=== PATIENT | male | born 1955 | race Caucasian/White ===

== ENCOUNTER → 2017-12-21 | Outpatient (CLI) | payer OTHER ==
--- NOTE | 2017-12-21 11:29 | DIAGNOSTIC IMAGING REPORT ---
ULTRASOUND OF THE CAROTID ARTERIES CLINICAL HISTORY: QUADRANTANOPIA OF LEFT EYE COMPARISON STUDY: None. TECHNIQUE: Real-time, grayscale, and color Doppler sonography of the carotid arteries was performed. Imaging reviewed in the transverse and longitudinal planes. NASCET criteria was utilized for stenosis calcification. FINDINGS: There is minimal atherosclerotic plaque present . The peak systolic velocity within the right internal carotid artery is 90 cm/sec. The systolic velocity ratio of right internal to common carotid artery is 1.3. The peak systolic velocity within the left internal carotid artery is 79 cm/sec. The systolic velocity ratio left internal to common carotid artery is 1.3. There is retrograde flow within the right vertebral artery.. The external carotid arteries are patent. Blood pressure in the right arm measured 142 mm/Hg. Blood pressure in the left arm measured 152 mm/Hg. IMPRESSION: 1. No evidence of hemodynamically significant carotid stenosis 2. Retrograde flow within the right vertebral artery. Electronically signed by: Tirso Last M.D. 12/21/2017 11:28 AM Dictated Date/Time: 12/21/2017 11:24 AM
== END | disposition home or self-care (01) ==
LOC: C.ULTR 10:35
PROVIDERS: ATTEND Internal Medicine
DX: H53.462 Homonymous bilateral field defects, left side (principal); H53.461 Homonymous bilateral field defects, right side

== ENCOUNTER 2019-10-27 04:29 | Inpatient (IN) ==
--- OUTSIDE RECORDS SUMMARY | 2019-10-27 04:32 | External Medical Summary | Continuity of Care Document ---
:1955 Author Name Ami MPoli, Provider Address Unavailable Unavailable , Care Team Providers Name Role Phone Unavailable Unavailable Unavailable Problems Hyperlipidemia (272.4) (E78.5) Prediabetes (790.29) (R73.03) Visual disturbances (368.9) (H53.9) Allergies and Adverse Reactions No Known Drug Allergies (Allergy) Medications No Reported Medications , M.D. Refills: 0 Procedures Procedures not documented Immunizations Immunizations not documented Family History Unknown Family Member Family history of malignant melanoma (V16.8) Status: Active Comments: Family History (Z80.8) Mother Family history of malignant neoplasm (V16.9) (Z80.9) Status: Active Family history of Status: Active Father Family history of malignant neoplasm (V16.9) (Z80.9) Status: Active Family history of Status: Active Social History - Smoking Status Never smoker Plan of Treatment Planned Observations Planned Goals not documented Results No Known Results Results not documented Encounters Appointment; Kinsey Bojorquez DO 19-Jan-2018 13:00 Encounter Diagnosis: Problem not documented
--- OUTSIDE RECORDS SUMMARY | 2019-10-27 04:32 | External Medical Summary | Continuity of Care Document ---
:1955 Author Name Ami Dan, Provider Address Unavailable Unavailable , Care Team Providers Name Role Phone Unavailable Unavailable Unavailable Problems Visual disturbances (368.9) (H53.9) Prediabetes (790.29) (R73.03) Hyperlipidemia (272.4) (E78.5) Allergies and Adverse Reactions No Known Drug [...]
[2019-10-27] MEDS ORDERED: ASPIRIN CHEW 324 MG PO STA (04:46)
[2019-10-27] MEDS ORDERED: NITROGLYCERIN SL 0.4 MG/TAB TAB SL PRN ×2 (04:46→07:03)
[2019-10-27 04:54] LABS: Basophils # (auto) 0.01 K/uL (0-0.2); Basophils % (auto) 0.2 %; Eosinophils # (auto) 0.09 K/uL (0-0.5); Eosinophils % (auto) 1.4 %; Hematocrit (blood only) 45.6 % (42-52); Hemoglobin 15.4 g/dL (14.0-18.0); Immature Granulocytes # (auto) 0.01 K/uL (0.00-0.02); Immature Granulocytes % (auto) 0.2 %; Lymphocytes # (auto) 2.49 K/uL (1.2-3.4); Mean Corpuscular Hemoglobin 28.3 pg (25-34); Mean Corpuscular Hgb Conc 33.8 g/dL (32-36); Mean Corpuscular Volume 83.7 fL (80-100); Mean Platelet Volume 9.1 fL (7.4-10.4); Monocytes # (auto) 0.46 K/uL (0.11-0.59); Neutrophils % (auto) 53.2 %; Platelet Count 158 K/uL (130-400); RDW Coefficient of Variation 13.5 % (11.5-14.5); RDW Standard Deviation 40.7 fL (36.4-46.3); Red Blood Count 5.45 M/uL (4.7-6.1); White Blood Count 6.56 K/uL (4.8-10.8)
[2019-10-27] MEDS ORDERED: NITROGLYCERIN 2% OINTMENT 30GM TUBE EXT ONE (04:58)
--- NOTE | 2019-10-27 05:09 | Emergency Department Note ---
History of Present Illness General Chief complaint: Chest Pain Stated complaint: DEEP CHEST PAINS, SWEATING, ODD FEELING IN LEG/ARM History of Present Illness Maximum Pain Intensity: 5 This 64-year-old presents to the ER complaining of chest pressure with diaphoresis since 1:30 AM Location: Mid chest Quality: Pressure Severity: Moderate Duration: This morning Timing: Started at 1:30 AM Context: Patient was concerned and came in Modifying factors: better with nothing; worse with activity Patient also complains of some tingling in his right fingers. Patient denies dyspnea, radiating pain, abdominal pain, leg pain or swelling. No prior heart disease. He does not smoke. He states he has no active medical problems. He states his father had heart problems in his older age but is unsure what. 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 Beliefs That Will Affect Care: None marital status: Current Living Situation: Spouse Other Information That Helps Us Care for You: No Feels Safe at Home: Yes Safety Concerns: Feels Safe At This Time Smoking Status: Never smoker Do You Dip or Chew Tobacco: No ; Second Hand Exposure: No ; Tobacco Cessation Education Requested by Patient: No Hx Alcohol Use: No Hx Substance Use: No Review of Systems A total of 10 systems reviewed and were otherwise negative Physical Exam Vital Signs Vital Signs - 24 hr 10/27/19 04:52 10/27/19 04:56 10/27/19 04:57 Pulse Rate 57 L Pulse Rate [Apical] 52 L 68 Pulse Rate from SpO2 Sensor 58 L Pulse Rhythm [Apical] Regular Regular Respiratory Rate 16 21 16 Respiratory Effort / Characteristics Non-Labored Non-Labored Accessory Muscle Use Respiratory Depth Normal Normal Respiratory Pattern Regular Regular Blood Pressure 116/86 Blood Pressure [Right Arm] 148/89 H 116/86 Blood Pressure Mean 94 Blood Pressure Mean [Right Arm] 108 96 Pulse Oximetry 100 99 96 Oxygen Delivery Method Room Air Room Air 10/27/19 05:00 10/27/19 05:06 10/27/19 05:30 Pulse Rate 56 L 57 L Pulse Rate [Apical] 52 L Pulse Rate from SpO2 Sensor 55 L 49 L Pulse Rhythm [Apical] Regular Respiratory Rate 18 16 16 Respiratory Effort / Characteristics Non-Labored Spontaneous Respiratory Depth Normal Respiratory Pattern Blood Pressure 123/84 127/76 Blood Pressure [Right Arm] 123/84 Blood Pressure Mean 89 91 Blood Pressure Mean [Right Arm] 97 Pulse Oximetry 96 97 98 Oxygen Delivery Method Room Air 10/27/19 06:00 Pulse Rate 50 L Pulse Rate [Apical] Pulse Rate from SpO2 Sensor 51 L Pulse Rhythm [Apical] Respiratory Rate 17 Respiratory Effort / Characteristics Respiratory Depth Respiratory Pattern Blood Pressure 119/91 Blood Pressure [Right Arm] Blood Pressure Mean 99 Blood Pressure Mean [Right Arm] Pulse Oximetry 99 Oxygen Delivery Method VITALS: Vitals are noted on the nurse's note and reviewed by myself. Vital signs stable. GENERAL: White male anxious appearing, in no acute distress, nondiaphoretic, well-developed well-nourished. SKIN: Capillary reflex less than 2 seconds. HEENT: Normocephalic. PERRLA. EOMI. Nares patent. Mucous membranes moist. Neck is supple without nuchal rigidity. HEART: Regular rate and rhythm without murmurs gallops or rubs. LUNGS: Clear to auscultation bilaterally without wheezes, rales or rhonchi. No retractions or accessory muscle use. ABDOMEN: Positive bowel sounds x 4. Normal tympanic percussion. Soft, nontender, without masses or organomegaly. Bartholomew sign negative. No guarding or rebound tenderness. MUSCULOSKELETAL: No gross musculoskeletal defects. NEURO: Patient was alert and oriented to person place and time. Cranial nerves II through XII grossly intact. No pronator drift. Celebra exam intact. no focal neurological deficits. Course Administered Medications Acetaminophen (Tylenol) 650 mg PO Q4H PRN PRN Reason: Pain or Fever Stop: 11/26/19 07:02 Last Admin: 10/27/19 18:03 Dose: 650 mg Documented by: [id number] Gelatin (Surgifoam Sponge 100 (Large)) 1 ea EXT ONCE PRN PRN Reason: Hemostasis Stop: 11/26/19 14:54 Last Admin: 10/27/19 15:04 Dose: 1 ea Documented by: [id number] Heparin Sodium/Dextrose (Heparin Sodium/Dextrose) 25,000 units in 500 mls @ 30 mls/hr IV .[id number] [facility]; Protocol Stop: 11/26/19 05:44 Last Admin: 10/27/19 22:40 Dose: Not Given Documented by: [id number] Admin: 10/27/19 05:52 Dose: 1,500 units/hr, 30 mls/hr Documented by: [id number] Cosigned by: [id number] Nitroglycerin (Nitro-Bid 2%) 0.5 inch EXT Q6 [facility] Stop: 11/26/19 11:59 Last Admin: 10/28/19 00:07 Dose: 0.5 inch Documented by: [id number] Admin: 10/27/19 17:32 Dose: 0.5 inch Documented by: [id number] Admin: 10/27/19 16:07 Dose: Not Given Documented by: [id number] Oxycodone/Acetaminophen (Percocet 5mg/325mg) 1 tab PO Q4H PRN PRN Reason: Pain Stop: 11/10/19 15:58 Last Admin: 10/27/19 21:26 Dose: 1 tab Documented by: [id number] Discontinued Medications Aspirin (Aspirin) 324 mg PO NOW STA Stop: 10/27/19 04:47 Last Admin: 10/27/19 04:51 Dose: 324 mg Documented by: [id number] Atropine Sulfate (Atropine Sulfate) Confirm Administered Dose 1 mg IV .STK-MED ONE Stop: 10/27/19 10:47 Last Admin: 10/27/19 16:06 Dose: Not Given Documented by: [id number] Bupivacaine HCl (Marcaine 0.5% Mpf) 0 ml INFIL ONCE [facility] Stop: 10/27/19 15:16 Last Admin: 10/27/19 15:06 Dose: 8 ml Documented by: [id number] Clopidogrel Bisulfate (Plavix) 600 mg PO NOW STA Stop: 10/27/19 14:10 Last Admin: 10/27/19 15:55 Dose: 600 mg Documented by: [id number] Fentanyl Citrate (Fentanyl Citrate) Confirm Administered Dose 100 mcg .ROUTE .STK-MED ONE Stop: 10/27/19 10:24 Last Admin: 02/06/20 16:06 Dose: Not Given Documented by: [id number] Fentanyl Citrate (Fentanyl Citrate) Confirm Administered Dose 100 mcg .ROUTE .[facility]-MED ONE Stop: 10/27/19 12:42 Last Admin: 10/27/19 16:08 Dose: Not Given Documented by: [id number] Heparin Sodium (Porcine) (Heparin Sodium (Porcine)) Confirm Administered Dose 10,000 units .ROUTE .[facility] ONE Stop: 10/27/19 05:50 Last Admin: 10/27/19 05:51 Dose: 7,000 units Documented by: [id number] Cosigned by: [id number] Heparin Sodium (Porcine) (Heparin Iv Bolus (Contact Acid Plant Operator Use Only)) Confirm Administered Dose 10,000 units .ROUTE .[facility] ONE Stop: 10/27/19 10:24 Last Admin: 10/27/19 15:01 Dose: 10,000 units Documented by: [id number] Heparin Sodium (Porcine) (Heparin Iv Bolus (Contact Acid Plant Operator Use Only)) Confirm Administered Dose 10,000 units .ROUTE .[facility] ONE Stop: 10/27/19 11:48 Last Admin: 10/27/19 16:06 Dose: Not Given Documented by: [id number] Heparin Sodium/Dextrose () 1 ea IV NOW STA; Protocol Stop: 10/27/19 05:42 Last Admin: 10/27/19 05:58 Dose: 1 ea Documented by: [id number] Heparin Sodium/Sodium Chloride (Heparin/Nss 1000 Unit/500ml Flush Bag) Confirm Administered Dose 3,000 units IV .[facility] ONE Stop: 10/27/19 10:24 Last Admin: 10/27/19 16:06 Dose: Not Given Documented by: [id number] Acetaminophen (Ofirmev) 1,000 mg in 100 mls @ 400 mls/hr IV NOW STA Stop: 10/27/19 05:44 Last Infusion: 10/27/19 05:57 Dose: 0 mls/hr Documented by: [id number] Admin: 10/27/19 05:34 Dose: 400 mls/hr Documented by: [id number] Sodium Chloride (Nss 1000ml) 1,000 mls @ 1 mls/hr IV .Q24H HUGO Stop: 10/27/19 14:07 Last Admin: 10/27/19 16:09 Dose: Not Given Documented by: [id number] Sodium Chloride (Nss 1000ml) 1,000 mls @ 100 mls/hr IV .Q10H HUGO Stop: 10/27/19 21:44 Last Admin: 10/27/19 16:08 Dose: Not Given Documented by: [id number] Cefazolin Sodium (Ancef 1000mg) 1,000 mg in 7.5 mls @ 2.5 mls/min IV ONCE ONE Stop: 10/27/19 14:59 Last Admin: 10/27/19 14:30 Dose: 2.5 mls/min Documented by: [id number] Lidocaine HCl (Buffered Lidocaine 1%) 20 ml INFIL ONCE ONE Stop: 10/27/19 14:55 Last Admin: 10/27/19 15:03 Dose: 8 ml Documented by: [id number] Midazolam HCl (Versed) Confirm Administered Dose 2 mg .ROUTE .STK-MED ONE Stop: 10/27/19 10:24 Last Admin: 10/27/19 16:06 Dose: Not Given Documented by: [id number] Midazolam HCl (Versed) Confirm Administered Dose 2 mg .ROUTE .STK-MED ONE Stop: 10/27/19 11:22 Last Admin: 10/27/19 16:06 Dose: Not Given Documented by: [id number] Midazolam HCl (Versed) Confirm Administered Dose 2 mg .ROUTE .STK-MED ONE Stop: 10/27/19 12:15 Last Admin: 10/27/19 16:07 Dose: Not Given Documented by: [id number] Midazolam HCl (Versed) Confirm Administered Dose 2 mg .ROUTE .STK-MED ONE Stop: 10/27/19 12:42 Last Admin: 10/27/19 16:08 Dose: Not Given Documented by: [id number] Morphine Sulfate (Morphine Sulfate) 4 mg IV NOW STA Stop: 10/27/19 05:59 Last Admin: 10/27/19 06:02 Dose: 4 mg Documented by: [id number] Nicardipine HCl (Cardene) Confirm Administered Dose 25 mg .ROUTE .STK-MED ONE Stop: 10/27/19 10:24 Last Admin: 10/27/19 16:06 Dose: Not Given Documented by: [id number] Nitroglycerin (Nitrostat) 0.4 mg SL UD PRN PRN Reason: Chest Pain Stop: 11/26/19 04:45 Last Admin: 10/27/19 04:51 Dose: 0.4 mg Documented by: [id number] Nitroglycerin (Nitro-Bid 2%) 0.5 inch EXT NOW ONE Stop: 10/27/19 04:59 Last Admin: 10/27/19 05:05 Dose: 0.5 inch Documented by: [id number] Nitroglycerin/Dextrose (Nitroglycerin/D5w 100 Mcg/Ml 20ml Syringe) Confirm Administered Dose 2,000 mcg .ROUTE .STK-MED ONE Stop: 10/27/19 10:25 Last Admin: 10/27/19 16:06 Dose: Not Given Documented by: [id number] Norepinephrine Bitartrate (Levophed (Contact Acid Plant Operator Use Only)) Confirm Administered Dose 8 mg .ROUTE .STK-MED ONE Stop: 10/27/19 12:27 Last Admin: 10/27/19 16:08 Dose: Not Given Documented by: [id number] Ondansetron HCl (Zofran) 4 mg IV NOW STA Stop: 10/27/19 05:59 Last Admin: 10/27/19 06:02 Dose: 4 mg Documented by: [id number] Thrombin (Recothrom Kit) 0 units TOP ONCE HUGO Stop: 10/27/19 18:00 Last Admin: 10/27/19 14:40 Dose: 8 units Documented by: [id number] Medical Decision Making Medical Records Attestation: I reviewed the patient's medical records. Home Medications Current Medication List: was personally reviewed by me Laboratory Data Attestation: I reviewed the patient's lab results. Result diagrams: 10/27/19 04:40 10/27/19 04:40 Lab Results 10/27/19 10/27/19 10/27/19 Range/Units 04:40 04:40 04:40 WBC 6.56 (4.8-10.8) K/uL RBC 5.45 (4.7-6.1) M/uL Hgb 15.4 (14.0-18.0) g/dL Hct 45.6 (42-52) % MCV 83.7 (80-100) fL MCH 28.3 (25-34) pg MCHC 33.8 (32-36) g/dL RDW Std Deviation 40.7 (36.4-46.3) fL RDW Coeff of Leroy 13.5 (11.5-14.5) % Plt Count 158 (130-400) K/uL MPV 9.1 (7.4-10.4) fL Immature Gran % (Auto) 0.2 % Neut % (Auto) 53.2 % Lymph % (Auto) 38.0 % [place] % (Auto) 7.0 % Eos % (Auto) 1.4 % Baso % (Auto) 0.2 % Immature Gran # (Auto) 0.01 (0.00-0.02) K/uL Neut # (Auto) 3.50 (1.4-6.5) K/uL Lymph # (Auto) 2.49 (1.2-3.4) K/uL [place] # (Auto) 0.46 (0.11-0.59) K/uL Eos # (Auto) 0.09 (0-0.5) K/uL Baso # (Auto) 0.01 (0-0.2) K/uL PT 9.8 (9.0-12.0) Seconds INR 1.0 (0.9-1.1) APTT 21.8 (21.0-31.0) Seconds PTT Ratio 0.8 Sodium 140 (136-145) mmol/L Potassium 4.0 (3.5-5.1) mmol/L Chloride 108 H (98-107) mmol/L Carbon Dioxide 27 (21-32) mmol/L Anion Gap 5.0 (3-11) BUN 17 (7-18) mg/dl Creatinine 1.24 (0.6-1.4) mg/dl Est Cr Clr Drug Dosing 67.1 ml/min Est GFR ( Amer) 70.3 Est GFR (Non-Af Amer) 60.6 BUN/Creatinine Ratio 13.7 (10-20) Glucose 135 H (70-99) mg/dl Calcium 8.8 (8.5-10.1) mg/dl Total Bilirubin 0.6 (0.2-1) mg/dl AST 17 (15-37) U/L ALT 33 (12-78) U/L Alkaline Phosphatase 69 (45-117) U/L Troponin I 0.200 H* (0-0.045) ng/ml Total Protein 6.8 (6.4-8.2) gm/dl Albumin 3.6 (3.4-5.0) gm/dl Globulin 3.2 (2.5-4.0) gm/dl Albumin/Globulin Ratio 1.1 (0.9-2) Lipase 308 (73-393) U/L Imaging Data Attestation: I personally reviewed and interpreted this imaging study as follows: Blood Pressure Blood Pressure Findings: Normal blood pressure MDM Narrative Prior records/ancillary studies reviewed. Triage Nursing notes reviewed. The patient's history was concerning for chest pain. Differential diagnosis: Etiologies such as cardiac ischemia, aortic dissection, pulmonary embolism, pneumonia, pneumothorax, musculoskeletal, infections, pericarditis, myocarditis, esophageal rupture, gastrointestinal, as well as others were entertained. Physical examination: As above. ER treatment provided: An order was placed for continuous cardiac monitoring. The monitor shows a rate of 45 -90 with a NS rhythm. Nitroglycerin, aspirin, Nitropaste, heparin On reassessment the patient felt better. Diagnostic interpretation by me: The electrocardiogram was normal sinus, ST depression in lead I, V5 and V6, T wave inversion aVL, rate of 57, no old EKG. Impression abnormal EKG with co ncerns for ischemia interpreted by myself EKG ordered for chest pain. Serial EKGs showed no ST elevation. I think arrhythmia is unlikely. EKG shows normal sinus rhythm with no interval abnormalities such as QT prolongation or WPW. There are no findings to suggest Brugada syndrome. Cardiac monitoring in the emergency department reveals no tachycardic or bradycardic dysrhythmia. Hypertrophic cardiomyopathy was considered but there are no clear historical elements pointing toward this. EKG is not suggestive. The QRS voltage is not extremely large and there are no suggestive Q waves. The labs revealed elevated troponin. Stable H&H Imaging studies: Chest x-ray with no acute consolidation, pneumothorax or free air per my interpretation HEART SCORE: Hx: high/mod/low suspicion: 2 ECG: ST depression/nonspecific changes/normal: 2 Age: Greater than 65/45-64/less than 45: 2 Risk factors: (Hypertension, hyperlipidemia, diabetes, coronary disease, tobacco use, cocaine use): 0 Troponin: Greater than 2 times normal limits/1-2 times normal limits/normal: 2 Total: 8 Consultation: A consultation was placed with the hospitalist, Dr Christianson. The case was discussed and diagnostics were reviewed. The patient was evaluated in the ER for further treatment. Exam and history seem consistent with NSTEMI with concerns for cardiac in etiology. Patient felt better after the nitroglycerin. Second EKG was improved. Patient was counseled on the heparin and was heparinized. He states he has no risk factors for recent GI bleeding. Patient is agreeable treatment plan of admission. Medicine was consulted. Patient was pain-free after the nitroglycerin. Nitropaste was placed. Patient was reassessed multiple times. He had serial EKGs. There was no STEMI on the serial EKGs. They were slightly improved after the nitroglycerin. By the evaluation outlined above emergent etiologies such as aortic dissection, pulmonary embolism, pneumonia, pneumothorax, infections, pericarditis, myocarditis, gastrointestinal, as well as others were deemed relatively unlikely. The pt informed about the findings as listed above. All questions were answered and pleased with the treatment. The chart was completed utilizing [employer]ista Speech voice recognition software. Grammatical errors, random word insertions, pronoun errors, and incomplete sentences are an occassional consequence of this system due to software limitations, ambient noise, and hardware issues. Any formal questions or concerns about the content, text, or information contained within the body of this dictation should be directly addressed to the physician preschool assistant for clarification. Impression & Plan Acute non-ST elevation myocardial infarction (NSTEMI) Critical Care Time Critical Care Time: Yes Total Critical Care Time: 35 Discharge Plan Visit Data *Final* Discharge Date/Time: 10/27/19 06:46 Chief Complaint: Chest Pain Stated Complaint: DEEP CHEST PAINS, SWEATING, ODD FEELING IN LEG/ARM ED Provider: Homer [facility] ED Midlevel Provider: Ale Lyons Discharge Problem: Acute non-ST elevation myocardial infarction (NSTEMI) Patient Disposition: Admitted As Inpatient Condition: Fair Discharge Instructions Interventions: ED Discharge Assessment Last Done: 10/27/19 06:46
[2019-10-27 05:15] LABS: Partial Thromboplastin Ratio 0.8; Partial Thromboplastin Time 21.8 Seconds (21.0-31.0); Prothrombin Time 9.8 Seconds (9.0-12.0)
[2019-10-27 05:17] LABS: Albumin Level 3.6 gm/dl (3.4-5.0); BUN Creatinine Ratio 13.7 (10-20); Calcium 8.8 mg/dl (8.5-10.1); Creatinine Clr Calc Pharmacy 67.1 ml/min; Est GFR (African American) 70.3; Est GFR (Non-African American) 60.6
--- NOTE | 2019-10-27 05:21 | Emergency Department Note ---
ED Visit Note I have seen and examined this patient with Ale Pena and generally agree with the treatment plan as discussed. Patient is a 64-year-old male with chest pain relieved by nitro. His EKG here is abnormal however does not meet STEMI criteria. Will discuss with hospitalist. .
[2019-10-27 05:26] LABS: Albumin Globulin Ratio 1.1 (0.9-2); Bilirubin,Total 0.6 mg/dl (0.2-1); Globulin 3.2 gm/dl (2.5-4.0); Total Protein 6.8 gm/dl (6.4-8.2); Troponin I 0.2 ng/ml (0-0.045)
[2019-10-27] MEDS ORDERED: ACETAMINOPHEN 1,000 MG/100 ML VIAL IV STA (05:30)
[2019-10-27] MEDS ORDERED: HEPARIN SOD 5,000 UNIT/0.5 ML VIAL ONE (05:49)
[2019-10-27] MEDS: HEPARIN SODIUM/DEXTROSE 25,000 UNITS/500 ML BAG IV SCH ×2 (05:52→22:40)
[2019-10-27] MEDS ORDERED: ONDANSETRON INJ 2 MG/ML 2 ML VIAL IV STA (05:58)
[2019-10-27] MEDS ORDERED: MoRPHine SULFATE 4 MG/ML 1 ML CARP\\VIAL IV STA (05:58)
[2019-10-27] MEDS ORDERED: ONDANSETRON INJ 2 MG/ML 2 ML VIAL IV PRN (07:03)
--- NOTE | 2019-10-27 07:04 | XRay Report ---
SINGLE VIEW CHEST CLINICAL HISTORY: Atypical chest pain. FINDINGS: An AP, portable, upright chest radiograph is obtained. No prior studies are available for c omparison at the time of dictation. The examination is mildly degraded by portable technique and ilan ent rotation. The heart is top normal for projection. The mediastinal contour is within normal limit s. The lungs and pleural spaces are clear. No pneumothorax is seen. The bony thorax is grossly intact . IMPRESSION: No active disease in the chest. ACT 112: Negative or not required by law. Electronically signed by: Darrel Chiu M.D. 10/27/2019 7:03 AM
[2019-10-27] MEDS ORDERED: PNEUMOCOCCAL POLYSACCHARIDES 25 MCG/0.5 ML VIAL/SYR IM ONE (07:14)
[2019-10-27] MEDS ORDERED: INFLUENZA ADMINISTRATION CHARGE ONE (07:14)
[2019-10-27] MEDS ORDERED: INFLUENZA VACCINE HIGH DOSE 65+ 0.5 ML SYR IM ONE (07:14)
[2019-10-27] MEDS ORDERED: PNEUMOCOCCAL ADMINISTRATION CHARGE ONE (07:14)
--- NOTE | 2019-10-27 08:23 | History and Physical Report ---
DATE OF ADMISSION: 10/27/2019 CHIEF COMPLAINT: Chest pain. HISTORY OF PRESENT ILLNESS: This 64-year-old male with past medical history significant for hyperlipidemia, prediabetes. 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 He is not on any medications. Lives at home with his , presents with chest pain. The patient woke up around 1:30 a.m. with chest discomfort and some pressure like feeling . He thought it was heartburn and went back to sleep and at around 4:30 a.m. he again woke up with a similar kind of chest discomfort and was 6/10 in severity and some tingliness in his hands. No radiation.When he stood up and walking felt he was diaphoretic. At that time, he came to the ER. In the ER, he was given nitro and the pain got resolved. Currently he is on nitro paste. He has some headaches from it. Otherwise, he is currently resting comfortably and hemodynamically stable. Denies any dizziness or nausea or shortness of breath during the episode. No blurred visions. No earache, no runny nose, no sore throat, no cough, no difficulty swallowing. Appetite is okay. He cut back on sugars and lost about 10 pounds in the last few months. No nausea, no vomiting, no abdominal pain, no diarrhea, no constipation, no blood in stools or black stools. No hematuria or burning micturition, no swelling in the legs, no rash. Has some bruises in his hands. He says he easily bruises whenever he hit the things. No smoking history. His father had heart disease in the old age. ^Otherwise he is active, can climb steps and walks without any issues. ALLERGIES: No known drug allergies. PAST MEDICAL HISTORY: As mentioned above. PAST SURGICAL HISTORY: Colonoscopy, dental surgery. MEDICATIONS: None. FAMILY HISTORY: Father had melanoma. Mother had pancreatic cancer. SOCIAL HISTORY: and lives with his . No smoking, no alcohol, no drug use. REVIEW OF SYMPTOMS: As per HPI. Rest of review of systems negative. PHYSICAL EXAMINATION: GENERAL: The patient is of moderate build, not in acute distress. VITAL SIGNS: Temperature 36.4, pulse 52, respiratory rate 16, blood pressure 123/84, oxygen 97% on room air. HEENT: No pallor, no icterus. Pupils equal, round, reactive to light. NECK: No JVD, no neck masses, no carotid bruits. CARDIOVASCULAR: S1, S2 heard, regular rate and rhythm, no murmur, no gallop. RESPIRATORY SYSTEM: Normal AP diameter. No accessory muscle use. No wheezing, no crackles. ABDOMEN: Soft, bowel sounds present, nontender. No distention. CENTRAL NERVOUS SYSTEM: Cranial nerves II-XII grossly nonfocal. EXTREMITIES: No edema, no erythema. LABORATORY DATA: WBC 6.5, hemoglobin 15.4, hematocrit 45.6, platelets 158. PT 9.8, INR 1, APTT 21.8. Sodium 140, potassium 4, chloride 100, bicarbonate 27, BUN 17, creatinine 1.2, serum glucose 135, calcium 8.8, total bilirubin 0.6, AST 17, ALT 33, alkaline phosphatase 69, troponin 0.2, lipase 308. IMAGING: Chest x-ray, no acute findings seen. EKG: Shows sinus bradycardia with some T-wave inversions in lateral leads. ASSESSMENT AND PLAN: This is a 64-year-old male who presents with chest pain and found to be some EKG changes and elevation of troponin, possible non-ST elevated myocardial infarction. 1. Possible non-ST elevated myocardial infarction with chest pain, diaphoresis with EKG changes T-wave inversions in lateral leads and troponin of 0.2. We will start on IV heparin. The patient will continue aspirin 81 mg daily. Follow the fasting lipid profile. We will continue nitro paste 0.5 mg every 6 hours. Keep n.p.o. and closely monitor in tele floor. Consult cardiology for further management. 2. History of hyperlipidemia, not on medications. We will follow up FLP.. 3. Prediabetes. We will follow his blood sugars. Currently n.p.o. We will follow his HbA1c levels. 4. History of elevated PSA, follow up with family doctor. 5. Deep venous thrombosis prophylaxis, on IV heparin. DISPOSITION: Admit to tele floor. Expect to discharge home and follow with family doctor. Level 1, full code. MTDD
--- NOTE | 2019-10-27 09:11 | Cardiology Consultation ---
Date of Consultation October 27, 2019 Assessment & Plan (1) Acute non-ST elevation myocardial infarction (NSTEMI): (2) Diabetes: The patient has not been compliant with medical follow-up. 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 He did not follow-up and presented for admission on no medications. He has had several episodes of chest pain before he came to the hospital. His first set of cardiac markers are borderline elevated. I am concerned that we are dealing with a non-STEMI. He is currently receiving heparin. I believe the best way to evaluate him is to proceed directly to cardiac catheterization. I explained the risk benefit and intent of the procedure to him including the potential for catheter-based intervention such as balloon angioplasty or intracoronary stents. The patient is willing to proceed. He is currently n.p.o. and I believe we can get him done this morning. History of Present Illness Attending Physician: Feroz Perez MD History of Present Illness This is a 64-year-old male patient with a history of an ocular stroke number years ago. He has a history of phase 0 diabetes. He has not seen his primary care physician however, for approximately 3 years. He came in on no medications. He was in his usual state of health and then was awoken from sleep last evening with chest discomfort. 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 He continued to have this discomfort and decided to present to the emergency department where he has been admitted. His first cardiac troponin is 0.2. EKG has some minor T wave abnormalities. He has been admitted with a non-STEMI. Allergies Allergy/AdvReac Type Severity Reaction Status Date / Time [id number] Allergy Mild Uncoded 12/18/06 12:12 Home Medications Home Medications Medication Instructions Recorded Confirmed Type No Known Home Medications 10/27/19 10/27/19 History Patient History Medical History History of kidney stones Surgical History No pertinent past surgical history Social History Preferred Language: Yemeni Communication Ability: Effective Technical Sourcing Recruiter Required: No Beliefs That Will Affect Care: None marital status: Current Living Situation: Spouse Other Information That Helps Us Care for You: No Feels Safe at Home: Yes Safety Concerns: Feels Safe At This Time Smoking Status: Never smoker Do You Dip or Chew Tobacco: No ; Second Hand Exposure: No ; Tobacco Cessation Education Requested by Patient: No Hx Alcohol Use: No Hx Substance Use: No Review of Systems Review of Systems: All systems reviewed & are unremarkable except as noted in HPI & below The patient recently has lost 20 pounds by his own choice. Physical Exam Physical Exam: General: no acute distress and stated age Head: normocephalic, no masses, lesions, tenderness or abnormalities Eyes: conjunctiva are pink and non-injected, sclera clear Neck: supple, no adenopathy, no bruits, normal jugular venous pulse, no hepatojugular reflux Chest: normal shape and normal respiratory effort Lungs: clear to auscultation and percussion Cardiac Exam: - regular rate & rhythm, no murmurs gallops or rubs - normal S1, normal S2 Pulses: 2(+) throughout Abdomen: abdomen soft, non-tender, no abnormal masses and no hepatosplenomegaly Musculoskeletal: no gait disturbance, no joint inflammation, no deforming arthritis Extremities: no edema and no cyanosis Neuro: grossly normal exam Results & Data Vital Signs (Past 12 Hours) Vital Signs Temp Pulse Pulse Resp BP BP Pulse Ox 10/27/19 07:04 37.1 C 48 L 20 123/68 98 10/27/19 06:32 16 110/72 100 10/27/19 06:00 50 L 17 119/91 99 10/27/19 05:30 57 L 16 127/76 98 10/27/19 05:06 52 L 16 123/84 97 10/27/19 05:00 56 L 18 123/84 96 10/27/19 04:57 68 16 116/86 96 10/27/19 04:56 57 L 21 116/86 99 10/27/19 04:52 52 L 16 148/89 H 100 10/27/19 04:31 36.4 C L 52 L 16 157/92 H 100 Laboratory Results Laboratory Results - last 24 hr 10/27/19 10/27/19 10/27/19 04:40 04:40 04:40 WBC 6.56 RBC 5.45 Hgb 15.4 Hct 45.6 MCV 83.7 MCH 28.3 MCHC 33.8 RDW Std Deviation 40.7 RDW Coeff of Leroy 13.5 Plt Count 158 MPV 9.1 Immature Gran % (Auto) 0.2 Neut % (Auto) 53.2 Lymph % (Auto) 38.0 [place] % (Auto) 7.0 Eos % (Auto) 1.4 Baso % (Auto) 0.2 Immature Gran # (Auto) 0.01 Neut # (Auto) 3.50 Lymph # (Auto) 2.49 [place] # (Auto) 0.46 Eos # (Auto) 0.09 Baso # (Auto) 0.01 PT 9.8 INR 1.0 APTT 21.8 PTT Ratio 0.8 Sodium 140 Potassium 4.0 Chloride 108 H Carbon Dioxide 27 Anion Gap 5.0 BUN 17 Creatinine 1.24 Est Cr Clr Drug Dosing 67.1 Est GFR ( Amer) 70.3 Est GFR (Non-Af Amer) 60.6 BUN/Creatinine Ratio 13.7 Glucose 135 H Calcium 8.8 Total Bilirubin 0.6 AST 17 ALT 33 Alkaline Phosphatase 69 Troponin I 0.200 H* Total Protein 6.8 Albumin 3.6 Globulin 3.2 Albumin/Globulin Ratio 1.1 Lipase 308 Medications Administered Current Inpatient Medications Acetaminophen (Tylenol) 650 mg PO Q4H PRN PRN Reason: Pain or Fever Stop: 11/26/19 07:02 Aspirin (Ecotrin Ectab) 81 mg PO QAM [facility] Stop: 11/27/19 08:59 Heparin Sodium/Dextrose (Heparin Sodium/Dextrose) 25,000 units in 500 mls @ 30 mls/hr IV .[id number] [facility]; Protocol Stop: 11/26/19 05:44 Last Admin: 10/27/19 05:52 Dose: 1,500 units/hr, 30 mls/hr Documented by: Sodium Chloride (Nss 1000ml) 1,000 mls @ 1 mls/hr IV .Q24H [facility] Stop: 11/26/19 09:14 Nitroglycerin (Nitrostat) 0.4 mg SL UD PRN PRN Reason: Chest Pain Stop: 11/26/19 07:02 Nitroglycerin (Nitro-Bid 2%) 0.5 inch EXT Q6 [facility] Stop: 11/26/19 11:59 Ondansetron HCl (Zofran) 4 mg IV Q6H PRN PRN Reason: Nausea Stop: 11/26/19 07:02
[2019-10-27] MEDS ORDERED: SODIUM CHLORIDE 0.9% 1000ML 1,000 ML IV SCH ×2 (09:15→14:15)
[2019-10-27] MEDS ORDERED: HEPARIN (PORCINE) 1000 UNIT/ML 10 ML (CATH LAB USE ONLY) ONE ×2 (10:23→11:47)
[2019-10-27] MEDS ORDERED: NiCARDipine HCL INJ 2.5 MG/ML 10 ML AMP ONE (10:23)
[2019-10-27] MEDS ORDERED: MIDAZOLAM HCL 1 MG/ML 2ML VIAL ONE ×5 (10:23→14:25)
[2019-10-27] MEDS ORDERED: fentaNYL citrate 100 MCG/2 ML VIAL ONE ×3 (10:23→14:25)
[2019-10-27] MEDS ORDERED: NITROGLYCERIN/D5W 100MCG/ML 20ML SYR ONE (10:24)
[2019-10-27 10:29] LABS: Troponin I 2.13 ng/ml (0-0.045)
[2019-10-27] MEDS ORDERED: ATROPINE SULFATE 0.1 MG/ML 10ML SYR IV ONE (10:46)
--- NOTE | 2019-10-27 11:41 | Cardiac Catheterization ---
Date of Service October 27, 2019 Cardiac Cath Report Cardiac Cath Report Procedure: 1. Coronary angiography 2. Left heart catheterization 3. Left ventriculogram History: This is a 64-year-old male patient with a previous history of an ocular stroke and diabetes who presented with chest pain and had an elevation in his cardiac markers. Procedure summary: After informed consent was obtained the patient was brought to the cardiac catheterization lab where he was prepped and draped in usual manner for right transradial approach. Preformed 5 [place] diagnostic catheters were utilized for the coronary angiograms. A 5 [place] pigtail catheter was utilized for the left ventriculogram. Following the procedure the patient underwent coronary intervention. Coronary angiography: Selective injections of the left coronary artery reveal mild luminal irregularities of the left main trunk. The LAD has diffuse severe disease in the proximal and mid segment with PING grade I flow. There is also a diagonal branch from the LAD which has diffuse proximal disease. The left circumflex artery consists of a large first marginal branch and a second medium sized marginal branch. Just after the takeoff of the first marginal branch there is a 80 to 90% stenoses. Selective injections of the right coronary artery revealed to be large and dominant. The distal posterior lateral branch has a 95% discrete stenoses. The right coronary artery gives off very good collaterals to the distal LAD. Left ventriculogram: The left ventricle is of normal size. Left ventricular systolic function is preserved. The mitral valve is competent. The aortic root and ascending aorta have normal morphology and diameter. Summary: The patient has a functionally occluded LAD due to severe proximal and mid disease. There are rich collaterals from the right coronary artery to the distal LAD. There is also a 80 to 90% stenosis of the left circumflex artery just after the takeoff of the first marginal branch. There is also a discrete 95% stenosis of the distal posterior lateral branch from the right coronary artery. Left ventricular function remains well-preserved. Recommendations: Recommendations are for immediate intervention on the LAD. Further treatment depends on the outcome of that procedure.
[2019-10-27] MEDS ORDERED: NOREPINEPHRINE BITARTRATE 1 MG/ML 4 ML VIAL (CATH LAB USE ONLY) ONE (12:26)
[2019-10-27] MEDS ORDERED: LIDOCAINE HCL 2% 2 ML VIAL/AMP(20MG/ML) INFIL ONE (13:11)
[2019-10-27] MEDS ORDERED: PROPOFOL IV EMULSION 10 MG/ML 20 ML VIAL IV ONE ×2 (13:11→14:52)
--- NOTE | 2019-10-27 14:00 | Post Anesthesia Assessment ---
Date of Service October 27, 2019 Post Sedation Assessment Vital Signs Temp Pulse Pulse Resp BP BP Pulse Ox 10/27/19 10:24 43 L 20 104/62 99 10/27/19 07:04 98.8 F 48 L 20 123/68 98 10/27/19 07:03 98.2 F 35 L 10/27/19 06:32 16 110/72 100 10/27/19 06:00 50 L 17 119/91 99 10/27/19 05:30 57 L 16 127/76 98 10/27/19 05:06 52 L 16 123/84 97 10/27/19 05:00 56 L 18 123/84 96 10/27/19 04:57 68 16 116/86 96 10/27/19 04:56 57 L 21 116/86 99 10/27/19 04:52 52 L 16 148/89 H 100 10/27/19 04:31 97.5 F L 52 L 16 157/92 H 100 Recovery Score Activity: Moves 4 extremities Respiration: Deep Breath/Cough Circulation: +/-20% PreAnes Value Consciousness: Fully Awake Oxygen Saturation: O2 needed for >90% Discharge Sedation Level of Care: Fast Track Phase II Post Sedation Plan On clinical assessment, the patient appears to have tolerated the sedation without complications. Patient is recovering as anticipated. Patient will continue to be monitored by nursing and may be discharged when sedation discharge criteria are met per below protocol. Upon Completions of procedure up to 15 minutes continue every 5 minute vital signs and the P.A.R. score; then discharge to a Phase I or Fast Track to Phase II per the following guidelines: * Discharge Patient to appropriate Phase II area if PAR is 8 or greater or return to pre- procedure baseline. The post - procedure orders will be as directed. * If PAR score is less than 8 or not return to pre-procedure baseline then patient will follow Phase I monitoring till PAR is reached for Phase II. The Phase I may be done in procedure room or may call to secure a Phase I area. * If naloxone or flumazenil are used for reversal, hold in Phase I for continued monitoring from when last reversal dose was given for a minimum of 60 minutes or longer pending the nurse and/or physician discretion of patient condition before discharge to Phase II. Please call the Sedation Physician to re-evaluate and complete post-note for discharge to Phase II area. Do NOT discharge from procedure sedation or Phase 1 until post- sedation evaluation note is complete by procedure /sedation MD Sedation Discharge Instructions to be given to the patient at discharge to home.
--- NOTE | 2019-10-27 14:01 | Anesthesiology Consultation ---
Date of Service October 27, 2019 Assessment & Plan Chart Review Chart Review: Acceptable Risk for Surgery Consults Requested none History Surgery Operation Date: 10/27/19 10:40 Proposed Procedures p Right Exploration of Radial Artery, Removal of Foreign Body - Panda Mar MD Operation Date: 10/27/19 11:00 Proposed Procedures p Cardiac Cath Procedure - Valdemar Colby MD Height/Weight Height: 6 ft 1 in Weight: 89.6 kg Allergies Allergy/AdvReac Type Severity Reaction Status Date / Time [id number] Allergy Mild Uncoded 12/18/06 12:12 Medications Home Medications Medication Instructions Recorded Confirmed Last Taken No Known Home Medications 10/27/19 10/27/19 Unknown Active Medications Generic Name Dose Route Start Last Admin Trade Name Freq PRN Reason Stop Dose Admin Heparin Sodium/Dextrose 25,000 units in 500 mls @ 30 mls/hr 10/27/19 05:45 10/27/19 05:52 Heparin Sodium/Dextrose IV 11/26/19 05:44 1,500 units/hr .[id number] HUGO 30 mls/hr Administration Protocol 1,500 UNITS/HR Past Medical History Medical History History of kidney stones Past Surgical History Surgical History No pertinent past surgical history Social History Smoking Status: Never smoker Do You Dip or Chew Tobacco: No Hx Alcohol Use: No Hx Substance Use: No substance use type: does not use Physical Exam Vital Signs Last Vital Signs Temp 37.1 C 10/27/19 07:04 Pulse 43 L 10/27/19 10:24 Resp 20 10/27/19 10:24 BP 104/62 10/27/19 10:24 Pulse Ox 99 10/27/19 10:24 Testing Laboratory Results 10/27/19 04:40 10/27/19 04:40 PT 9.8 Seconds (9.0-12.0) 10/27/19 04:40 INR 1.0 (0.9-1.1) 10/27/19 04:40 APTT 21.8 Seconds (21.0-31.0) 10/27/19 04:40
[2019-10-27] MEDS ORDERED: ePHEDrine sulfate 50 MG/ML AMP IV PRN (14:03)
[2019-10-27] MEDS ORDERED: ATROPINE SULFATE 0.1 MG/ML 10ML SYR IV PRN (14:03)
--- NOTE | 2019-10-27 14:04 | Communication Note ---
Date of Service: October 27, 2019 Pateint for emergency surger to remove stent from right radial artery. I have discussed the risks options and benefits of the procedure with the patien t and his . The patient and his understand the risks options and benefits and agrees to the procedure.
--- NOTE | 2019-10-27 14:07 | Post Operative Brief Note ---
Cardiology Brief Post Op Date of Surgery October 27, 2019 Pre & Post Diagnosis Operation Date: 10/27/19 10:40 <No data on this case meets the specified criteria> Operation Date: 10/27/19 11:00 <No data on this case meets the specified criteria> Procedure -- Washer Blanket Redd Jenkins MD Gasket Maker Glenna Estimated Blood Loss 20 Findings See Below Subtotal acute on chronic mid LAD occlusion. PCI from proximal to mid LAD with a single drug-eluting stent (3.0 x 38 [place]; post-dilated with 4.0 NC). Procedure complicated by un-deployed stent coming off delivery catheter in proximal LAD/left main. Stent retrieved with 3.0 balloon placed distal to undeployed stent. Unable to pull stent through radial artery sheath and stent became lodged in distal radial artery at access site. All other equipment removed. TR band in place. Dr. Mar from Vascular surgery consulted and came to cath lab technologist to see patient. Plan is for open radial artery repair and stent removal. 6Fr SLEEP TECHNOLOGIST access site closed with AngioSeal. Anesthesia Type RN Sedation Complications As above Disposition Disposition: PCU (To OR first)
[2019-10-27] MEDS ORDERED: CLOPIDOGREL BISULFATE 300 MG TAB PO STA (14:09)
--- NOTE | 2019-10-27 14:29 | Electrocardiogram Report ---
Test Reason : Blood Pressure : / mmHG Vent. Rate : 057 BPM Atrial Rate : 057 BPM P-R Int : 166 ms QRS Dur : 094 ms QT Int : 422 ms P-R-T Axes : 057 -25 134 degrees QTc Int : 410 ms Sinus bradycardia Abnormal ECG No previous ECGs available Confirmed by Taj Santana ([id number]) on 10/27/2019 2:28:40 PM Referred By: REFERRED SELF Confirmed By:Taj Santana
[2019-10-27] MEDS ORDERED: CEFAZOLIN 250 MG/ML 1 GM VIAL ONE (14:32)
--- NOTE | 2019-10-27 14:32 | Electrocardiogram Report ---
Test Reason : Blood Pressure : / mmHG Vent. Rate : 053 BPM Atrial Rate : 053 BPM P-R Int : 178 ms QRS Dur : 100 ms QT Int : 448 ms P-R-T Axes : 042 -29 118 degrees QTc Int : 420 ms Sinus bradycardia Nonspecific ST and T wave abnormality Abnormal ECG When compared with ECG of 27-OCT-2019 04:52, (unconfirmed) Premature atrial complexes are no longer Present Criteria for Anterior infarct are no longer Present Criteria for Anterolateral infarct are no longer Present ST now depressed in Lateral leads Confirmed by Taj Santana ([id number]) on 10/27/2019 2:32:38 PM Referred By: REFERRED SELF Confirmed By:Taj Santana
--- NOTE | 2019-10-27 14:32 | Electrocardiogram Report ---
Test Reason : Blood Pressure : / mmHG Vent. Rate : 052 BPM Atrial Rate : 052 BPM P-R Int : 178 ms QRS Dur : 088 ms QT Int : 424 ms P-R-T Axes : 044 -29 130 degrees QTc Int : 394 ms Sinus bradycardia with Premature atrial complexes Anterolateral infarct , age undetermined Abnormal ECG When compared with ECG of 27-OCT-2019 04:36, (unconfirmed) Significant changes have occurred Confirmed by Taj Santana ([id number]) on 10/27/2019 2:32:29 PM Referred By: REFERRED SELF Confirmed By:Taj Santana
--- NOTE | 2019-10-27 14:36 | Electrocardiogram Report ---
Test Reason : Blood Pressure : / mmHG Vent. Rate : 047 BPM Atrial Rate : 053 BPM P-R Int : 176 ms QRS Dur : 098 ms QT Int : 442 ms P-R-T Axes : 040 -26 124 degrees QTc Int : 391 ms Sinus bradycardia Nonspecific ST and T wave abnormality Abnormal ECG When compared with ECG of 27-OCT-2019 04:53, T wave inversion more evident in Lateral leads Confirmed by Taj Santana ([id number]) on 10/27/2019 2:35:40 PM Referred By: REFERRED SELF Confirmed By:Taj Santana
--- NOTE | 2019-10-27 14:36 | Electrocardiogram Report ---
Test Reason : Blood Pressure : / mmHG Vent. Rate : 046 BPM Atrial Rate : 046 BPM P-R Int : 168 ms QRS Dur : 102 ms QT Int : 438 ms P-R-T Axes : 042 -21 126 degrees QTc Int : 383 ms Sinus bradycardia Abnormal ECG When compared with ECG of 27-OCT-2019 05:07, (unconfirmed) No significant change was found Confirmed by Taj Santana ([id number]) on 10/27/2019 2:35:59 PM Referred By: REFERRED SELF Confirmed By:Taj Santana
[2019-10-27] MEDS ORDERED: HEPARIN SOD (PORCINE) 1000 UNIT/ML 10 ML VIAL ONE (14:43)
[2019-10-27] MEDS ORDERED: ONDANSETRON INJ 2 MG/ML 2 ML VIAL ONE (14:45)
[2019-10-27] MEDS ORDERED: XYLOCAINE 1%/SOD BICARB 20 ML VIAL INFIL ONE (14:54)
[2019-10-27] MEDS ORDERED: GELATIN SPONGE SZ 100 EXT PRN (14:55)
[2019-10-27] MEDS ORDERED: CEFAZOLIN 1000MG 1,000 MG/7.5 ML SYR IV ONE (14:57)
[2019-10-27] MEDS ORDERED: THROMBIN 5000 UNITS KIT TOP SCH (15:00)
--- NOTE | 2019-10-27 15:07 | Consultation ---
Date of Consultation October 27, 2019 Assessment & Plan (1) Radial artery injury: This point recommended retrieval of the stent via a cutdown. The radial artery will be repaired if needed. The patient's family and the patient understood the risks benefits and complications of this procedure. They elected to go ahead with the procedure. Patient will be taken from the Gym Supervisor right to the operating room for repair of his artery. History of Present Illness Reason for Consultation: Stent in right radial artery Attending Physician: Feroz Perez MD History of Present Illness This gentleman is a 64-year-old male who was undergoing heart catheterization and stent placement. The stent prematurely partially deployed. It was pulled back into the sheath and is now lodged in the distal radial artery. He subsequently underwent the placement of a stent via his right groin. He is not complaining of any pain in his hand. He is left-handed. Allergies Allergy/AdvReac Type Severity Reaction Status Date / Time [id number] Allergy Mild Uncoded 12/18/06 12:12 Home Medications Home Medications Medication Instructions Recorded Confirmed Type No Known Home Medications 10/27/19 10/27/19 History Patient History Medical History History of kidney stones Surgical History No pertinent past surgical history Social History Preferred Language: [place] African Communication Ability: Effective Sinter Feeder Required: No Beliefs That Will Affect Care: None marital status: Current Living Situation: Spouse Other Information That Helps Us Care for You: No Feels Safe at Home: Yes Safety Concerns: Feels Safe At This Time Smoking Status: Never smoker Do You Dip or Chew Tobacco: No ; Second Hand Exposure: No ; Tobacco Cessation Education Requested by Patient: No Hx Alcohol Use: No Hx Substance Use: No Review of Systems Review of Systems: Unobtainable due to the previous sedation for his heart catheterization. Physical Exam Physical Exam: This was limited to his hand. He has a good brachial pulse in the right arm. There is an ulnar pulse present. His hand is slightly cooler than the left however that we was exposed to ambient temperatures. Capillary refill is present but slightly decreased. There is no bleeding seen from the puncture site. Results & Data Vital Signs (Past 12 Hours) Vital Signs Temp Pulse Pulse Resp BP BP Pulse Ox 10/27/19 10:24 43 L 20 104/62 99 10/27/19 07:04 37.1 C 48 L 20 123/68 98 10/27/19 07:03 36.8 C 35 L 10/27/19 06:32 16 110/72 100 10/27/19 06:00 50 L 17 119/91 99 10/27/19 05:30 57 L 16 127/76 98 10/27/19 05:06 52 L 16 123/84 97 10/27/19 05:00 56 L 18 123/84 96 10/27/19 04:57 68 16 116/86 96 10/27/19 04:56 57 L 21 116/86 99 10/27/19 04:52 52 L 16 148/89 H 100 10/27/19 04:31 36.4 C L 52 L 16 157/92 H 100
--- NOTE | 2019-10-27 15:08 | Post Operative Brief Note ---
Immediate Post Op Note v1 Date of Surgery October 27, 2019 Pre & Post Diagnosis Operation Date: 10/27/19 10:40 Pre-Op Diagnosis: Foreign Body Right Radial Artery Post-Op Diagnosis: Foreign Body Right Radial Artery Operation Date: 10/27/19 11:00 <No data on this case meets the specified criteria> I identified the patient and participated in the time-out.: Yes Procedure Operation Date: 10/27/19 10:40 Actual Procedures p Removal of Foreign Body Right Radial Artery(Right) - Panda Mar MD Operation Date: 10/27/19 11:00 Actual Procedures p Cath, Left with Cors and Vent - Valdemar Jenkins MD Surgeon Panda Mar MD Community Program Assistant MD Camryn Estimated Blood Loss 10 Findings Consistent with Post-Op Diagnosis Specimens Coronary stent Anesthesia Type MAC Complications none Disposition Accompanied Patient To Recovery: No Disposition: Recovery Room
[2019-10-27] MEDS ORDERED: BUPIVACAINE 0.5 % 5 MG/1 ML MPF 30ML VIAL INFIL SCH (15:15)
[2019-10-27] MEDS ORDERED: THROMBIN FOR SOLN 20000 UNIT KIT TOP SCH (15:30)
[2019-10-27] MEDS ORDERED: OXYCODONE/ACETAMINOPHEN 5mg/325mg TAB PO PRN (15:59)
[2019-10-27] MEDS: NITROGLYCERIN 2% OINTMENT 30GM TUBE EXT SCH ×2 (16:07→17:32)
--- NOTE | 2019-10-27 17:00 | Anesthesiology Progress Note ---
Date of Service October 27, 2019 Anesthesia Post Procedure Vital Signs Vital Signs: Temp Pulse Pulse Resp BP BP BP 10/27/19 16:01 36.6 C 46 L 18 103/77 10/27/19 15:35 36.3 C L 44 L 14 99/57 L 10/27/19 15:25 46 L 12 107/62 10/27/19 15:16 36.2 C L 47 L 16 111/69 10/27/19 10:24 43 L 20 104/62 10/27/19 07:04 37.1 C 48 L 20 123/68 10/27/19 07:03 36.8 C 35 L 10/27/19 06:32 16 110/72 10/27/19 06:00 50 L 17 119/91 10/27/19 05:30 57 L 16 127/76 10/27/19 05:06 52 L 16 123/84 10/27/19 05:00 56 L 18 123/84 10/27/19 04:57 68 16 116/86 10/27/19 04:56 57 L 21 116/86 10/27/19 04:52 52 L 16 148/89 H 10/27/19 04:31 36.4 C L 52 L 16 157/92 H Pulse Ox 10/27/19 16:01 98 10/27/19 15:35 96 10/27/19 15:25 100 10/27/19 15:16 98 10/27/19 10:24 99 10/27/19 07:04 98 10/27/19 07:03 10/27/19 06:32 100 10/27/19 06:00 99 10/27/19 05:30 98 10/27/19 05:06 97 10/27/19 05:00 96 10/27/19 04:57 96 10/27/19 04:56 99 10/27/19 04:52 100 10/27/19 04:31 100 Pain Intensity Chest: Pain Intensity: 0 Transfer of Care Handoff Completed per policy Notes Mental Status: alert / awake / arousable and participated in evaluation Patient Amnestic to Procedure: Yes Nausea / Vomiting: adequately controlled Pain: adequately controlled Airway Patency, RR, SpO2: stable & adequate BP & HR: stable & adequate Hydration State: stable & adequate Anesthetic Complications: no major complications apparent and Pt Satisfied with anesthetic care
[2019-10-27] MEDS: ACETAMINOPHEN 325 MG TAB PO PRN (18:03)
--- NOTE | 2019-10-27 19:06 | Operative Report ---
Post Operative Report Pre & Post Diagnosis Operation Date: 10/27/19 10:40 Pre-Op Diagnosis: Foreign Body Right Radial Artery Post-Op Diagnosis: Foreign Body Right Radial Artery Operation Date: 10/27/19 11:00 <No data on this case meets the specified criteria> I identified the patient and participated in the time-out.: Yes Procedure Operation Date: 10/27/19 10:40 Actual Procedures Removal of Foreign Body Right Radial Artery(Right), Repair of right radial artery - Panda Mar MD Surgeon Dr. Mar Modular Home Crew Member MD Camryn Estimated Blood Loss 10 Findings Consistent with Post-Op Diagnosis Specimens None sent, though did extract partially deployed stent. Photo in EMR Anesthesia Type Local Complications none Disposition Accompanied Patient To Recovery: No Disposition: Recovery Room Indications 64 year old gentleman undergoing cardiac catheterization and stent placement via right radial access. Unfortunately, a stent maldeployed and was able to be retracted into the distal radial artery, however not fully recaptured, necessitating an open retrieval. Description of Procedure After sedation was administered and antibiotics administered, the patient was prepped and draped in a sterile fashion. A time-out was performed and the patient identified. Local was infiltrated in the distal R arm superficial to the distal radial artery. An incision was made and the radial artery dissected free. After heparinization the radial artery was controlled with vascular clamps. The access site was identified and a transverse arteriotomy was made at the previous access site. The stent was visible and retrieved. The artery was then flushed forwards and backwards and brisk bleeding noted antegrade and only minimal b leeding retrograde. The arteriotomy was closed with interrupted 7-0 prolene sutures. Doppler was used to evaluate the repair, which was patent. Once hemostasis was achieved, the fascia was reapproximated with a running 3-0 vicryl suture. Dermabond was applied. The patient tolerated the procedure well. The patient left the operation room in satisfactory condition and tolerated the procedure well. All needle and sponge counts were correct at the end of the procedure. Dr. Mar was present and scrubbed for the entire procedure. I attest to the content of the Intraoperative Record and any orders documented therein. Any exceptions are noted below.
--- NOTE | 2019-10-27 20:00 | Cardiac Catheterization ---
[facility] Data: Drug Safety Physician Cardiac Status Clinical evaluation leading to the procedure CAD Presenation: Non STEMI Anginal Classification: CCS IV Heart Failure: No Cardiogenic Shock within 24 Hours: No Cardiac Arrest within 24 Hours: No Imaging Studies Past 6 Months: No Stress Studies Past 6 Months: No Diagnostic Physicians Name: Redd Jenkins MD Status: Urgent Closure Device Percutaneous Entry Location: Femoral Closure Device: Angio-Seal Recommendations: PCI without planned CABG PCI Indication: PCI for high risk Non-ALEX Lesion Segment Name: mid LAD Culprit Artery: Yes Stenosis Prior to Rx (%): 100 Chronic Total Occlusion: No IVUS: Yes FFR: No Pre-Procedure PING Flow: 0 Previously Treated Lesion: No Lesion Complexity: High/C Lesion Length (mm): 35 Thrombus Present: Yes Bifurcation Lesion: Yes Guidewire Across Lesion: Stenosis Post-Procedure (%): 0 Post-Procedure PING Flow: 3 Devices(s) Deployed: Yes Yes Intraprocedure Events Significant Disection: No Perforation: No Cardiac Cath Procedure Full Procedure Date October 27, 2019 Pre-Procedure Diagnosis Pre-Procedure Diagnosis: Non STEMI AUC Score AUC Score: 8 Post-Procedure Diagnosis Post-Procedure Diagnosis: Severe CAD and Successful PCI Procedure(s) Performed Procedure(s) Performed: Coronary Angiography, Drug Eluting Stent, IVUS and Femoral Artery Angiography Environmental Compliance Officer Redd Jenkins MD Vascular Nurse(s) Glenna Estimated Blood Loss Estimated Blood Loss: 15 Medication(s) Medication(s): Fentanyl, Heparin, Lidocaine 1%, Nicardipine, Nitroglycerin and Versed Summary of Findings Indication: NSTEMI Access: 6 Fr right radial; 6 Fr right common femoral artery Catheters: EBU 3.5 guide, EBU 3.75 guide Findings: For full details of patient's coronary angiography please cath report dictated by Dr. Godoy. Briefly, patient found to have severe multi-vessel disease including a subtotal occlusion of his mid LAD with evidence of right to left collaterals. Decision to proceed with PCI. -- PCI -- Antithrombotic therapy: Heparin, clopidogrel post case Procedure: Left main cannulated with EBU 3.5 guide from right radial artery Exhibit Specialist 50 wire passed across lesion into distal vessel BMW placed into first diagonal Mid LAD lesion predilated with 2.5 and 3.0 compliant balloons IVUS used to assess length of disease, vessel size and degree of calcification. Significant calcification noted in the midsegment at takeoff of first diagonal. Despite aid of a guide liner was unable to deliver stent (3.5 x 38 mm Xience Jessica) across calcified mid LAD segment With further attempt undeployed stent became prematurely from stent delivery catheter in left main/proximal LAD. PING-3 flow persisted. Stent gently dilated with 1.5 balloon 3.0 balloon inflated distal to stent and used to pull back stent to ostium of the guide. Balloon, stent, guide pulled back to radial artery but unable to pull stent through 6 Fr slender sheath Stent became stuck in right radial artery and all other equipment removed. TR band placed. Femoral artery access obtained and left main cannulated with EBU 3.75 guide LAD rewired with bar pilot 50 wire. Intraluminal position confirmed with IVUS. Mid LAD predilated with 3.0 balloon With the aid of a telescope support catheter proximal to mid LAD stented with 3.0 x 38 mm Joel drug-eluting stent Stent post-dilated with 3.5 noncompliant balloon Repeat IVUS showed well opposed stent underexpanded in its proximal aspect and stent redilated with 4.0 balloon IC vasodilators administered for spasm Post procedure PING 3 flow, stent well expanded with minimal residual stenosis and no apparent cardiac complications. Arterial Closure: TR band, Angio-Seal Summary: 1. Initial attempt at stenting LAD via right radial artery complicated by premature stent dislodgment in left main/proximal LAD. Stent recaptured to distal right radial artery where became entrapped. 2. 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 Recommendations: Case discussed with vascular surgery. Plan for open stent retrieval and right radial artery repair. Load with clopidogrel 600mg when out of OR. Continue dual-antiplatelet therapy for at least 1 year Continue statin, and ASCVD risk factor modification Consult cardiac Rehab Additional intervention to circumflex/OM can be done as a staged outpatient procedure. Hemodynamics Rest Ao:: 90/50/66 Final Ao: 125/65/88 LV: -- Recommendations Recommendations: PCI without planned CABG Specimens Specimens: None Radiation Exposure (mGy) 5889 Contrast (mls) 145 Fluids (cc crystalloids) Fluids (cc crystalloids): 740 Drains Drains: none Anesthesia moderate Procedural Complication(s) Undeployed stent dislodgement and entrapment in right radial artery Disposition Vascular surgery OR I attest to the content of the Intraoperative Record and any orders documented therein. Any exceptions are noted below. [facility] Card Cath Procedure Codes Therapeutic Services & Ancillary Proc Procedure 1: Cardiovascular Tx and Anc Procedures: 93195 IV Ultrasound (Coronary or Graft) Moderate Sedation Procedure 1: Sedation/Anesthesia: 91576 Mod Sedation by a different physician ;Init15 Min Child Age 5&Up Procedure 2: Sedation/Anesthesia: 57327 Mod Sedation by a different physician;Ea Additional 15 Minutes Stenting Procedure 1: Cardiovascular Stent Procedures: 34986 Perc transluminal revascularization of acute sub/total occl, aMI PG Care Time/CCT Total # of Minutes Spent Total Time Spent with Patient: Total time spent is greater than 50% in coordination of care (as documented) at patient's floor/unit and/or counseling patient:
[2019-10-28] MEDS: NITROGLYCERIN 2% OINTMENT 30GM TUBE EXT SCH ×2 (00:07→05:27)
[2019-10-28 05:38] LABS: Basophils # (auto) 0.01 K/uL (0-0.2); Basophils % (auto) 0.1 %; Eosinophils # (auto) 0.02 K/uL (0-0.5); Eosinophils % (auto) 0.3 %; Hematocrit (blood only) 39.5 % (42-52); Hemoglobin 13.4 g/dL (14.0-18.0); Immature Granulocytes # (auto) 0.01 K/uL (0.00-0.02); Immature Granulocytes % (auto) 0.1 %; Lymphocytes # (auto) 1.09 K/uL (1.2-3.4); Lymphocytes % (auto) 15.8 %; Mean Corpuscular Hemoglobin 28.4 pg (25-34); Mean Corpuscular Hgb Conc 33.9 g/dL (32-36); Mean Corpuscular Volume 83.7 fL (80-100); Mean Platelet Volume 9.3 fL (7.4-10.4); Monocytes # (auto) 0.49 K/uL (0.11-0.59); Monocytes % (auto) 7.1 %; Neutrophils % (auto) 76.6 %; Platelet Count 137 K/uL (130-400); RDW Coefficient of Variation 13.4 % (11.5-14.5); RDW Standard Deviation 40.5 fL (36.4-46.3); Red Blood Count 4.72 M/uL (4.7-6.1); White Blood Count 6.92 K/uL (4.8-10.8)
[2019-10-28 05:53] LABS: Estimated Average Glucose 105 mg/dl; Hemoglobin A1C 5.3 % (4.5-5.6)
[2019-10-28 06:07] LABS: Calcium 8.3 mg/dl (8.5-10.1); Creatinine Clr Calc Pharmacy 71.7 ml/min; Est GFR (African American) 76.2; Est GFR (Non-African American) 65.7; Magnesium 2.2 mg/dl (1.8-2.4)
[2019-10-28] MEDS: ACETAMINOPHEN 325 MG TAB PO PRN ×2 (06:32→13:39)
[2019-10-28] MEDS: CLOPIDOGREL BISULFATE 75 MG TAB PO SCH (07:44)
[2019-10-28] MEDS: ASPIRIN 81 MG ECTAB PO SCH (07:45)
--- NOTE | 2019-10-28 08:36 | Anesthesiology Progress Note ---
Date of Service October 28, 2019 Anesthesia Post Procedure Vital Signs Vital Signs: Temp Pulse Resp BP BP Pulse Ox 10/28/19 08:04 37.0 C 64 18 128/61 95 10/28/19 03:37 37.0 C 53 L 17 104/53 L 94 10/27/19 23:39 36.8 C 53 L 18 105/54 L 98 10/27/19 19:39 36.7 C 81 18 127/65 93 10/27/19 16:01 36.6 C 46 L 18 103/77 98 10/27/19 15:35 36.3 C L 44 L 14 99/57 L 96 10/27/19 15:25 46 L 12 107/62 100 10/27/19 15:16 36.2 C L 47 L 16 111/69 98 10/27/19 10:24 43 L 20 104/62 99 Pain Intensity Chest: Pain Intensity: 0 Notes Mental Status: alert / awake / arousable and participated in evaluation Patient Amnestic to Procedure: Yes Nausea / Vomiting: adequately controlled Pain: adequately controlled Airway Patency, RR, SpO2: stable & adequate BP & HR: stable & adequate Hydration State: stable & adequate Anesthetic Complications: no major complications apparent and Pt Satisfied with anesthetic care
--- NOTE | 2019-10-28 09:49 | Surgery Progress Note ---
Date of Service October 28, 2019 Assessment & Plan (1) Radial artery injury: Pt doing well post op. OK for d/c from vascular standpoint. Will see in office if any problems. Please call if needed. Patient was seen, examined, and chart reviewed. Agree with exam and treatment plan of the Vascular PA. Subjective 64 yo m POD #1 after R radial art foreign body removal by Dr Mar, seen in f/u today. Pt admits local edema, ecchymosis, tenderness, but well controlled. Denies pain/numbness/tingling to R hand/fingers. Review of Systems Review of Systems: All systems reviewed & are unremarkable except as noted in HPI & below Physical Exam Constitutional: WD/WN, vitals as above Cardiovascular: Vessels: radial pulses present (BUE) Extremities: normal capillary refill Skin: + incision (R wrist C/D/I, significant local hematoma/echcymosis/tenderness. ) Results & Data Vital Signs (Past 12 Hours) Vital Signs Temp Pulse Resp BP Pulse Ox 10/28/19 08:04 37.0 C 64 18 128/61 95 10/28/19 03:37 37.0 C 53 L 17 104/53 L 94 10/27/19 23:39 36.8 C 53 L 18 105/54 L 98
--- NOTE | 2019-10-28 12:01 | Cardiology Progress Note ---
Date of Service October 28, 2019 Assessment & Plan (1) Acute non-ST elevation myocardial infarction (NSTEMI): (2) Stented coronary artery: The patient had successful stenting of a closed LAD. Unfortunately, a stent was lost in the coronary artery and when it was retrieved it was held up in the brachial artery of the arm which required surgical removal. Patient is doing well today. I think he should stay 1 more day on telemetry. His heart rate is slow and he tells me that he has always had a slow heart rate. I believe beta-blockers are contraindicated. For now I would leave him on the heparin and antiplatelet agents. I will discontinue the Nitropaste. Consideration has to be given for additional intervention on the coronary arteries possibly at a later date. At this time I would consider conservative management and possible discharge with stress testing before proceeding with another catheterization. Subjective The patient had an uneventful night. He is comfortable today sitting and eating his lunch. His and friends are in the room with him. All questions were answered. Review of Systems Review of Systems: All systems reviewed & are unremarkable except as noted in HPI & below Nothing additional to add Physical Exam Physical Exam: General: no acute distress and stated age Head: normocephalic, no masses, lesions, tenderness or abnormalities Eyes: conjunctiva are pink and non-injected, sclera clear Neck: supple, no adenopathy, no bruits, normal jugular venous pulse, no hepatojugular reflux Chest: normal shape and normal respiratory effort Lungs: clear to auscultation and percussion Cardiac Exam: - regular rate & rhythm, no murmurs gallops or rubs - normal S1, normal S2 Pulses: 2(+) throughout Abdomen: abdomen soft, non-tender, no abnormal masses and no hepatosplenomegaly Musculoskeletal: no gait disturbance, no joint inflammation, no deforming arthritis Extremities: Cath site is clean and dry Neuro: grossly normal exam Results & Data Vital Signs (Past 12 Hours) Vital Signs Temp Pulse Resp BP Pulse Ox 10/28/19 11:40 36.6 C 54 L 18 129/65 97 10/28/19 08:04 37.0 C 64 18 128/61 95 10/28/19 03:37 37.0 C 53 L 17 104/53 L 94 Laboratory Results Laboratory Results - last 24 hr 10/27/19 10/27/19 10/28/19 11:44 13:01 05:03 WBC 6.92 RBC 4.72 Hgb 13.4 L Hct 39.5 L MCV 83.7 MCH 28.4 MCHC 33.9 RDW Std Deviation 40.5 RDW Coeff of Leroy 13.4 Plt Count 137 MPV 9.3 Immature Gran % (Auto) 0.1 Neut % (Auto) 76.6 Lymph % (Auto) 15.8 [place] % (Auto) 7.1 Eos % (Auto) 0.3 Baso % (Auto) 0.1 Immature Gran # (Auto) 0.01 Neut # (Auto) 5.30 Lymph # (Auto) 1.09 L [place] # (Auto) 0.49 Eos # (Auto) 0.02 Baso # (Auto) 0.01 Activ Coag Time Kaolin 208 H 197 H Sodium Potassium Chloride Carbon Dioxide Anion Gap BUN Creatinine Est Cr Clr Drug Dosing Est GFR ( Amer) Est GFR (Non-Af Amer) BUN/Creatinine Ratio Glucose Estimat Average Glucose Hemoglobin A1c Calcium Magnesium 10/28/19 10/28/19 05:03 05:03 WBC RBC Hgb Hct MCV MCH MCHC RDW Std Deviation RDW Coeff of Leroy Plt Count MPV Immature Gran % (Auto) Neut % (Auto) Lymph % (Auto) [place] % (Auto) Eos % (Auto) Baso % (Auto) Immature Gran # (Auto) Neut # (Auto) Lymph # (Auto) [place] # (Auto) Eos # (Auto) Baso # (Auto) Activ Coag Time Kaolin Sodium 138 Potassium 4.0 Chloride 109 H Carbon Dioxide 25 Anion Gap 4.0 BUN 17 Creatinine 1.16 Est Cr Clr Drug Dosing 71.7 Est GFR ( Amer) 76.2 Est GFR (Non-Af Amer) 65.7 BUN/Creatinine Ratio 15.0 Glucose 99 Estimat Average Glucose 105 Hemoglobin A1c 5.3 Calcium 8.3 L Magnesium 2.2 Medications Administered Current Inpatient Medications Acetaminophen (Tylenol) 650 mg PO Q4H PRN PRN Reason: Pain or Fever Stop: 11/26/19 07:02 Last Admin: 10/28/19 06:32 Dose: 650 mg Documented by: Aspirin (Ecotrin Ectab) [facility] Stop: 11/27/19 08:59 Last Admin: 10/28/19 07:45 Dose: 81 mg Documented by: Clopidogrel Bisulfate (Plavix) 75 mg PO QAM [facility] Stop: 11/27/19 08:59 Last Admin: 10/28/19 07:44 Dose: 75 mg Documented by: Gelatin (Surgifoam Sponge 100 (Large)) 1 ea EXT ONCE PRN PRN Reason: Hemostasis Stop: 11/26/19 14:54 Last Admin: 10/27/19 15:04 Dose: 1 ea Documented by: Heparin Sodium/Dextrose (Heparin Sodium/Dextrose) 25,000 units in 500 mls @ 30 mls/hr IV .[id number] [facility]; Protocol Stop: 11/26/19 05:44 Last Admin: 10/27/19 22:40 Dose: Not Given Documented by: Nitroglycerin (Nitrostat) 0.4 mg SL UD PRN PRN Reason: Chest Pain Stop: 11/26/19 07:02 Ondansetron HCl (Zofran) 4 mg IV Q6H PRN PRN Reason: Nausea Stop: 11/26/19 07:02 Oxycodone/Acetaminophen (Percocet 5mg/325mg) 1 tab PO Q4H PRN PRN Reason: Pain Stop: 11/10/19 15:58 Last Admin: 10/27/19 21:26 Dose: 1 tab Documented by:
--- NOTE | 2019-10-28 15:05 | Hospitalist Progress Note ---
Date of Service October 28, 2019 Assessment & Plan (1) Acute non-ST elevation myocardial infarction (NSTEMI): Admitted with the precordial pain associated with sweating and some shortness of breath Patient woke up from sleep with the pain and initial troponin was elevated Echocardiogram; left ventricular size and normal with normal almost thickness, EF 60 to 65%, right ventricle systolic function is normal, left atrial size is normal, right atrial size normal, mild MR and mild TR Appreciate cardiology input and recommendation Status post cardiac cath (2) Stented coronary artery: Status post cardiac cath and successful stenting of the mid LAD segment Has been on Plavix and aspirin Remains free of pain Remains bradycardic which is seem to be longstanding Beta-tyrone contraindicated (3) Radial artery injury: Dislodgment of stent during cardiac cath Radiology at reexploration and retrieval of the stent Appreciate vascular surgery input and recommendation Remains stable Likely go home tomorrow (4) Diabetes: Has been on diabetic diet We will continue current management DVT prophylaxis Heparin CODE STATUS Full Subjective 10/28/2019 The patient was seen and examined in the telemetry unit on and 28 October He is a status post cardiac cath and successful stenting of the mid LAD He denies any symptoms today except mild tiredness Denies any chest pain and/or palpitation No numbness or tingling in the right upper extremity and right hand and/or fingers Review of Systems Review of Systems: All systems reviewed and are unremarkable except as noted below Musculoskeletal: Right upper extremity to be swelled but no evidence of neuro deficit Physical Exam Physical Exam: Lying in bed comfortably Constitutional: well developed and well nourished; no acute distress and not ill appearing Eyes: PERRL, conjunctivae normal, anicteric sclerae ENMT: external ear and nose normal, oropharynx normal Neck: trachea midline, no thyromegaly Respiratory: normal respiratory effort; no respiratory distress Auscultation: lungs clear to auscultation bilaterally Cardiovascular: Rate/Rhythm: regular rate and regular rhythm Heart Sounds: no murmur Gastrointestinal (Abdomen): Inspection/Auscultation: abdomen normal to inspection and normal bowel sounds Percussion/Palpation: abdomen soft; abdomen nontender Musculoskeletal: Right radial artery access site inflamed, mild to moderate swelling of the right hand without any sensory and motor abnormality Psychiatric: A+Ox3, euthymic affect Lymphatic: no cervical or axillary lymphadenopathy Results & Data ([facility]) Vital Signs (Past 12 Hours) Vital Signs Temp Pulse Resp BP Pulse Ox 10/28/19 11:40 36.6 C 54 L 18 129/65 97 10/28/19 08:04 37.0 C 64 18 128/61 95 10/28/19 03:37 37.0 C 53 L 17 104/53 L 94 Laboratory Results Short CBC 10/28/19 Range/Units 05:03 WBC 6.92 (4.8-10.8) K/uL Hgb 13.4 L (14.0-18.0) g/dL Hct 39.5 L (42-52) % Plt Count 137 (130-400) K/uL BMP 10/28/19 05:03 Sodium 138 Potassium 4.0 Chloride 109 H Carbon Dioxide 25 BUN 17 Creatinine 1.16 Glucose 99 Calcium 8.3 L Medications Administered Current Inpatient Medications Acetaminophen (Tylenol) 650 mg PO Q4H PRN PRN Reason: Pain or Fever Stop: 11/26/19 07:02 Last Admin: 10/28/19 13:39 Dose: 650 mg Documented by: Aspirin (Ecotrin Ectab) 81 mg PO [facility] Stop: 11/27/19 08:59 Last Admin: 10/28/19 07:45 Dose: 81 mg Documented by: Clopidogrel Bisulfate (Plavix) 75 mg PO [facility] Stop: 11/27/19 08:59 Last Admin: 10/28/19 07:44 Dose: 75 mg Documented by: Gelatin (Surgifoam Sponge 100 (Large)) 1 ea EXT ONCE PRN PRN Reason: Hemostasis Stop: 11/26/19 14:54 Last Admin: 10/27/19 15:04 Dose: 1 ea Documented by: Heparin Sodium/Dextrose (Heparin Sodium/Dextrose) 25,000 units in 500 mls @ 30 mls/hr IV .[id number] [facility]; Protocol Stop: 11/26/19 05:44 Last Admin: 10/27/19 22:40 Dose: Not Given Documented by: Nitroglycerin (Nitrostat) 0.4 mg SL UD PRN PRN Reason: Chest Pain Stop: 11/26/19 07:02 Ondansetron HCl (Zofran) 4 mg IV Q6H PRN PRN Reason: Nausea Stop: 11/26/19 07:02 Oxycodone/Acetaminophen (Percocet 5mg/325mg) 1 tab PO Q4H PRN PRN Reason: Pain Stop: 11/10/19 15:58 Last Admin: 10/27/19 21:26 Dose: 1 tab Documented by:
--- NOTE | 2019-10-28 16:42 | Electrocardiogram Report ---
Test Reason : Blood Pressure : / mmHG Vent. Rate : 051 BPM Atrial Rate : 051 BPM P-R Int : 158 ms QRS Dur : 098 ms QT Int : 470 ms P-R-T Axes : 054 -01 111 degrees QTc Int : 433 ms Sinus bradycardia Abnormal ECG When compared with ECG of 27-OCT-2019 05:37, T wave inversion now evident in Anterior leads QT has lengthened Confirmed by Taj Santana ([id number]) on 10/28/2019 4:41:42 PM Referred By: REFERRED SELF Confirmed By:Taj Santana
[2019-10-28] MEDS: HEPARIN SODIUM/DEXTROSE 25,000 UNITS/500 ML BAG IV SCH (16:50)
[2019-10-29 07:06] LABS: Basophils # (auto) 0.01 K/uL (0-0.2); Basophils % (auto) 0.2 %; Eosinophils # (auto) 0.06 K/uL (0-0.5); Hematocrit (blood only) 40.4 % (42-52); Hemoglobin 13.9 g/dL (14.0-18.0); Immature Granulocytes # (auto) 0.01 K/uL (0.00-0.02); Immature Granulocytes % (auto) 0.2 %; Lymphocytes # (auto) 1.21 K/uL (1.2-3.4); Lymphocytes % (auto) 19.7 %; Mean Corpuscular Hemoglobin 28.4 pg (25-34); Mean Corpuscular Hgb Conc 34.4 g/dL (32-36); Mean Corpuscular Volume 82.6 fL (80-100); Mean Platelet Volume 9.1 fL (7.4-10.4); Monocytes # (auto) 0.47 K/uL (0.11-0.59); Monocytes % (auto) 7.7 %; Neutrophils # (auto) 4.38 K/uL (1.4-6.5); Neutrophils % (auto) 71.2 %; Platelet Count 139 K/uL (130-400); RDW Coefficient of Variation 13.4 % (11.5-14.5); RDW Standard Deviation 40.5 fL (36.4-46.3); Red Blood Count 4.89 M/uL (4.7-6.1); White Blood Count 6.14 K/uL (4.8-10.8)
[2019-10-29 07:37] VITALS: TEMP 98.2
[2019-10-29 07:37] LABS: BUN Creatinine Ratio 15.7 (10-20); Calcium 8.5 mg/dl (8.5-10.1); Creatinine Clr Calc Pharmacy 71.7 ml/min; Est GFR (African American) 76.2; Est GFR (Non-African American) 65.7; Magnesium 2.3 mg/dl (1.8-2.4); Phosphorus 2.6 mg/dl (2.5-4.9); Potassium 3.9 mmol/L (3.5-5.1)
[2019-10-29] MEDS: ASPIRIN 81 MG ECTAB PO SCH (08:23)
[2019-10-29] MEDS: CLOPIDOGREL BISULFATE 75 MG TAB PO SCH (08:23)
--- NOTE | 2019-10-29 10:48 | Hospitalist Progress Note ---
Date of Service October 29, 2019 Assessment & Plan (1) Acute non-ST elevation myocardial infarction (NSTEMI): Admitted with the precordial pain associated with sweating and some shortness of breath Patient woke up from sleep with the pain and initial troponin was elevated Echocardiogram; left ventricular size and normal with normal almost thickness, EF 60 to 65%, right ventricle systolic function is normal, left atrial size is normal, right atrial size normal, mild MR and mild TR Appreciate cardiology input and recommendation Status post cardiac cath and stenting of mid LAD lesion Will need stress test down the line to evaluate further cardiac condition (2) Stented coronary artery: Status post cardiac cath and successful stenting of the mid LAD segment Has been on Plavix and aspirin Remains free of pain Remains bradycardic which is seem to be longstanding Beta-tyrone contraindicated Likely be discharged this afternoon (3) Radial artery injury: Dislodgment of stent during cardiac cath Radiology at reexploration and retrieval of the stent Appreciate vascular surgery input and recommendation Remains stable Radial arterial surgical site remains stable with insignificant bleeding Swelling has been improving and there is no neurological symptoms involving the right hand (4) Diabetes: Has been on diabetic diet We will continue current management DVT prophylaxis Heparin CODE STATUS Full Discharge this afternoon Subjective 10/28/2019 The patient was seen and examined in the telemetry unit on and 28 October He is a status post cardiac cath and successful stenting of the mid LAD He denies any symptoms today except mild tiredness Denies any chest pain and/or palpitation No numbness or tingling in the right upper extremity and right hand and/or fingers 10/29/2019 The patient was seen and examined in telemetry unit He does not have any significant complaints except minimal bleeding involving the radial arterial surgery site Denies any numbness and or tingling involving the right hand Will be discharged home this afternoon Review of Systems Review of Systems: All systems reviewed and are unremarkable except as noted below Musculoskeletal: Right upper extremity to be swelled but no evidence of neuro deficit Physical Exam Physical Exam: Lying in bed comfortably Constitutional: well developed and well nourished; no acute distress and not ill appearing Eyes: PERRL, conjunctivae normal, anicteric sclerae ENMT: external ear and nose normal, oropharynx normal Neck: trachea midline, no thyromegaly Respiratory: normal respiratory effort; no respiratory distress Auscultation: lungs clear to auscultation bilaterally Cardiovascular: Rate/Rhythm: regular rate and regular rhythm Heart Sounds: no murmur Gastrointestinal (Abdomen): Inspection/Auscultation: abdomen normal to inspection and normal bowel sounds Percussion/Palpation: abdomen soft; abdomen nontender Musculoskeletal: Extremities: + wrist abnormality (Radial arterial sutures remain stable, minimal swelling and tenderness of the adjoining area with insignificant bleeding) Right Neurologic: Alert, awake and oriented x3. No focal sensory and motor deficit appreciated Psychiatric: A+Ox3, euthymic affect Lymphatic: no cervical or axillary lymphadenopathy Results & Data ([facility]) Vital Signs (Past 12 Hours) Vital Signs Temp Pulse Resp BP Pulse Ox 10/29/19 07:36 36.8 C 60 19 120/64 95 10/29/19 04:00 36.6 C 53 L 18 129/62 98 10/28/19 23:57 37.2 C 56 L 18 128/63 96 Laboratory Results Short CBC 10/29/19 Range/Units 06:20 WBC 6.14 (4.8-10.8) K/uL Hgb 13.9 L (14.0-18.0) g/dL Hct 40.4 L (42-52) % Plt Count 139 (130-400) K/uL BMP 10/29/19 06:20 Sodium 137 Potassium 3.9 Chloride 107 Carbon Dioxide 23 BUN 18 Creatinine 1.16 Glucose 96 Calcium 8.5 Medications Administered Current Inpatient Medications Acetaminophen (Tylenol) 650 mg PO Q4H PRN PRN Reason: Pain or Fever Stop: 11/26/19 07:02 Last Admin: 10/28/19 13:39 Dose: 650 mg Documented by: Aspirin (Ecotrin Ectab) [address] [facility] Stop: 11/27/19 08:59 Last Admin: 10/29/19 08:23 Dose: 81 mg Documented by: Clopidogrel Bisulfate (Plavix) [address] [facility] Stop: 11/27/19 08:59 Last Admin: 10/29/19 08:23 Dose: 75 mg Documented by: Gelatin (Surgifoam Sponge 100 (Large)) 1 ea EXT ONCE PRN PRN Reason: Hemostasis Stop: 11/26/19 14:54 Last Admin: 10/27/19 15:04 Dose: 1 ea Documented by: Nitroglycerin (Nitrostat) 0.4 mg SL UD PRN PRN Reason: Chest Pain Stop: 11/26/19 07:02 Ondansetron HCl (Zofran) 4 mg IV Q6H PRN PRN Reason: Nausea Stop: 11/26/19 07:02 Oxycodone/Acetaminophen (Percocet 5mg/325mg) 1 tab PO Q4H PRN PRN Reason: Pain Stop: 11/10/19 15:58 Last Admin: 10/27/19 21:26 Dose: 1 tab Documented by:
--- NOTE | 2019-10-29 11:26 | Electrocardiogram Report ---
Test Reason : Blood Pressure : / mmHG Vent. Rate : 053 BPM Atrial Rate : 053 BPM P-R Int : 164 ms QRS Dur : 098 ms QT Int : 460 ms P-R-T Axes : 057 030 117 degrees QTc Int : 431 ms Sinus bradycardia Abnormal ECG When compared with ECG of 28-OCT-2019 06:42, No significant change was found Confirmed by Arnel Murray ([id number]) on 10/29/2019 11:26:37 AM Referred By: REFERRED SELF Confirmed By:Arnel Murray
--- NOTE | 2019-10-29 11:44 | Cardiology Progress Note ---
Date of Service October 29, 2019 Assessment & Plan (1) Acute non-ST elevation myocardial infarction (NSTEMI): (2) Diabetes: (3) Sinus bradycardia: (4) Dyslipidemia: Patient presented with a non-ST segment elevation myocardial infarction, peak troponin of 2.1. Echocardiogram revealed preserved LVEF in the range of 60-65%, with normal LV wall motion and no significant valvular heart disease. Patient underwent diagnostic cardiac catheterization on 10/27/2019 with a culprit stenosis of the LAD including severe proximal and mid disease. Right to left collaterals are noted to the distal LAD territory. An 80 to 90% stenosis of the left circumflex was also noted after takeoff of the first obtuse marginal. A discrete 95% stenosis of the distal posterior lateral branch of the right coronary artery was also observed. Patient underwent PCI from proximal to mid LAD with a single drug-eluting stent (3.0 x 38 Joel; post-dilated with 4.0 NC). Undeployed stent had come off the delivery catheter in the proximal LAD/left main. Stent was retrieved and retracted as far as the right radial artery, and then removed surgically which the patient tolerated well. Medication treatment: Patient is to remain on lifelong low-dose aspirin 81 mg daily. He was counseled that he will need treatment with clopidogrel 75 mg daily for 1 year post PCI, at which time ongoing therapy will be reassessed. Due to baseline sinus bradycardia, the use of beta-tyrone therapy in this patient is felt to be contraindicated. He did have a 4 beat run of relatively slow ventricular tachycardia observed on telemetry today at 11:22 AM. Given his normal LVEF, and lack of angina at present, I think he is at low risk for sudden cardiac , would recommend ongoing observation without beta-tyrone for this. We will add low-dose lisinopril 2.5 mg daily given his history of diabetes and coronary artery disease. His calculated LDL cholesterol this admission was 129 mg/dL. Patient to be discharged on atorvastatin 40 mg daily. Follow-up plan: Follow-up with Dr. Godoy or associate within 2 weeks. Plan for future stress testing to assess the ischemic burden prior to consideration of intervention to the remaining coronary artery stenoses. Candidacy for cardiac rehabilitation will be reassessed when he follows up as an outpatient. He has been counseled that he should not run a [place], cut wood, or remove snow for the rest of the season. Subjective Patient feeling well. Denies chest discomfort or shortness of breath. Telemetry reveals sinus bradycardia in the range of 50 to 55 bpm. A 4 beat megan of nonsustained ventricular tachycardia was observed today at 11:22 AM. Review of Systems Review of Systems: All systems reviewed & are unremarkable except as noted in HPI & below Physical Exam Physical Exam: Temp Pulse Resp BP Pulse Ox 36.8 C 60 19 120/64 95 10/29/19 07:36 10/29/19 07:36 10/29/19 07:36 10/29/19 07:36 10/29/19 07:36 Constitutional: WD/WN, vitals as above Respiratory: normal respiratory effort, lungs clear to auscultation Cardiovascular: RRR, no murmur, no edema Vessels: no JVD Extremities: no edema Right wrist incision clean dry and intact, no erythema or significant swelling to suggest hematoma. Neurologic: PERRL, EOMI, accommodation nl, no face palsy, no dysarthria Results & Data Vital Signs (Past 12 Hours) Vital Signs Temp Pulse Resp BP Pulse Ox 10/29/19 07:36 36.8 C 60 19 120/64 95 10/29/19 04:00 36.6 C 53 L 18 129/62 98 10/28/19 23:57 37.2 C 56 L 18 128/63 96 Laboratory Results CBC 10/29/19 Range/Units 06:20 WBC 6.14 (4.8-10.8) K/uL RBC 4.89 (4.7-6.1) M/uL Hgb 13.9 L (14.0-18.0) g/dL Hct 40.4 L (42-52) % Plt Count 139 (130-400) K/uL Neut # (Auto) 4.38 (1.4-6.5) K/uL Lymph # (Auto) 1.21 (1.2-3.4) K/uL Thomas # (Auto) 0.47 (0.11-0.59) K/uL Eos # (Auto) 0.06 (0-0.5) K/uL Baso # (Auto) 0.01 (0-0.2) K/uL Comprehensive Metabolic Panel 10/29/19 Range/Units 06:20 Sodium 137 (136-145) mmol/L Potassium 3.9 (3.5-5.1) mmol/L Chloride 107 (98-107) mmol/L Carbon Dioxide 23 (21-32) mmol/L BUN 18 (7-18) mg/dl Creatinine 1.16 (0.6-1.4) mg/dl Glucose 96 (70-99) mg/dl Calcium 8.5 (8.5-10.1) mg/dl Intake and Output 10/28/19 10/29/19 10/29/19 22:59 06:59 14:59 Intake Total 825 / 1450 150 / 1450 Balance 825 / 1450 150 / 1450 Intake: IV 500 / 500 HEPARIN SODIUM/DEXTROSE 25,000 500 / 500 units In 500 ml @ 1,500 UNITS/ HR 30 mls/hr IV .[id number] [facility] Rx #:[id number] Oral 325 / 950 150 / 950 Other: # Unmeasured Voids 2 Weight 90 kg Diagnostic Findings EKG performed today 10/29/2019 at 7:15 AM revealed sinus bradycardia 53 bpm, lateral T wave inversions, consistent with evolution of non-STEMI as observed on serial EKG tracings this hospital stay.
[2019-10-29] MEDS ORDERED: ATORVASTATIN 40 MG TAB PO SCH (11:45)
[2019-10-29 11:55] VITALS: BP 133/66; PULSE 61; O2SAT 97
--- NOTE | 2019-10-29 18:17 | Discharge Summary ---
Date of Service October 29, 2019 Admission HPI Per Admitting Provider DICTATED BY: Reji Christianson MD DATE OF ADMISSION: 10/27/2019 CHIEF COMPLAINT: Chest pain. HISTORY OF PRESENT ILLNESS: This 64-year-old male with past medical history significant for hyperlipidemia, prediabetes. 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 He is not on any medications. Lives at home with his , presents with chest pain. The patient woke up around 1:30 a.m. with chest discomfort and some pressure like feeling . He thought it was heartburn and went back to sleep and at around 4:30 a.m. he again woke up with a similar kind of chest discomfort and was 6/10 in severity and some tingliness in his hands. No radiation.When he stood up and walking felt he was diaphoretic. At that time, he came to the ER. In the ER, he was given nitro and the pain got resolved. Currently he is on nitro paste. He has some headaches from it. Otherwise, he is currently resting comfortably and hemodynamically stable. Denies any dizziness or nausea or shortness of breath during the episode. No blurred visions. No earache, no runny nose, no sore throat, no cough, no difficulty swallowing. Appetite is okay. He cut back on sugars and lost about 10 pounds in the last few months. No nausea, no vomiting, no abdominal pain, no diarrhea, no constipation, no blood in stools or black stools. No hematuria or burning micturition, no swelling in the legs, no rash. Has some bruises in his hands. He says he easily bruises whenever he hit the things. No smoking history. His father had heart disease in the old age. ^Otherwise he is active, can climb steps and walks without any issues. Admission Exam Per Admitting Provider GENERAL: The patient is of moderate build, not in acute distress. VITAL SIGNS: Temperature 36.4, pulse 52, respiratory rate 16, blood pressure 123/84, oxygen 97% on room air. HEENT: No pallor, no icterus. Pupils equal, round, reactive to light. NECK: No JVD, no neck masses, no carotid bruits. CARDIOVASCULAR: S1, S2 heard, regular rate and rhythm, no murmur, no gallop. RESPIRATORY SYSTEM: Normal AP diameter. No accessory muscle use. No wheezing, no crackles. ABDOMEN: Soft, bowel sounds present, nontender. No distention. CENTRAL NERVOUS SYSTEM: Cranial nerves II-XII grossly nonfocal. EXTREMITIES: No edema, no erythema. Principal Diagnosis Acute non-ST elevation NH, status post single drug-eluting stent placement in mid LAD, hypertension, diabetes, hyperlipidemia Discharge Exam Constitutional well developed and well nourished; no acute distress and not ill appearing Eyes PERRL, conjunctivae normal, anicteric sclerae ENMT external ear and nose normal, oropharynx normal Neck trachea midline, no thyromegaly Respiratory normal respiratory effort; no respiratory distress Auscultation: lungs clear to auscultation bilaterally Cardiovascular Rate/Rhythm: regular rate and regular rhythm Heart Sounds: no murmur Gastrointestinal (Abdomen) Inspection/Auscultation: abdomen normal to inspection and normal bowel sounds Percussion/Palpation: abdomen soft; abdomen nontender Musculoskeletal Extremities: + wrist abnormality (Radial arterial sutures remain stable, minimal swelling and tenderness of the adjoining area with insignificant bleeding) Psychiatric A+Ox3, euthymic affect Lymphatic no cervical or axillary lymphadenopathy Discharge Data Allergies Allergy/AdvReac Type Severity Reaction Status Date / Time [id number] Allergy Mild Uncoded 12/18/06 12:12 Consultations 10/27/19 05:31 ED Decision to Admit Stat 10/27/19 07:03 Consult Case Management - Discharge Planning Routine 10/27/19 08:00 Consult Cardiology Routine 10/27/19 14:09 Consult Cardiac Rehabilitation Routine Procedures Performed Operation Date: 10/27/19 10:40 Actual Procedures p Removal of Foreign Body Right Radial Artery(Right) - Panda Mar MD Operation Date: 10/27/19 11:00 Actual Procedures p Cath, Left with Cors and Vent - Victor Manuel Godoy, p Drug Eluting Stent SGl Vessel - Valdemar Jenkins MD s Placement Art Occlusive Device - Valdemar Jenkins MD s IVUS Coronary Single Vessel - Valdemar Jenkins MD Ordered Studies 10/27/19 10:22 CL Cath Imgs for PACS use only Routine 10/27/19 15:58 CL IVUS Coronary Single Vessel Routine Hospital Course (1) Acute non-ST elevation myocardial infarction (NSTEMI): Admitted with the precordial pain associated with sweating and some shortness of breath Patient woke up from sleep with the pain and initial troponin was elevated Echocardiogram; left ventricular size and normal with normal almost thickness, EF 60 to 65%, right ventricle systolic function is normal, left atrial size is normal, right atrial size normal, mild MR and mild TR Appreciate cardiology input and recommendation Status post cardiac cath and stenting of mid LAD lesion Will need stress test down the line to evaluate further cardiac condition (2) Stented coronary artery: Status post cardiac cath and successful stenting of the mid LAD segment Has been on Plavix and aspirin Remains free of pain Remains bradycardic which is seem to be longstanding Beta-tyrone contraindicated Likely be discharged this afternoon (3) Radial artery injury: Dislodgment of stent during cardiac cath Radiology at reexploration and retrieval of the stent Appreciate vascular surgery input and recommendation Remains stable Radial arterial surgical site remains stable with insignificant bleeding Swelling has been improving and there is no neurological symptoms involving the right hand (4) Diabetes: Has been on diabetic diet We will continue current management DVT prophylaxis Heparin CODE STATUS Full Discharge this afternoon Total Time Total Time Spent Total Time Spent (In Minutes): 35 minutes Total Time Includes: Examination of the Patient, Discharge Planning, Medication Reconciliation and Communication With Other Providers Discharge Plan Discharge Items Patient Disposition: Home - Self-Care Reason For Visit: CHEST PAIN Discharge Diagnosis: Acute non-ST elevation NH, status post single drug-eluting stent placement in mid LAD, hypertension, diabetes, hyperlipidemia Condition on Discharge: Fair Activity: Resume your previous activity Non-emergency contact: Primary Care Provider Call non-emergency contact if: you have any medication questions and your symptoms worsen Follow-up/Referrals: Harshad Bach MD [Primary Care Provider] - 11/04/19 11:20 am (We will call you on Thursday with an appointment [facility]) Panda Mar MD [Physician] - None (Patient to call office with any questions of problems. [phone]) Diet: Carb Consistent or DM2 and Heart Healthy Addtl Attending Provider Instructions: Try to keep right hand elevated when possible. Continue aspirin for life and Plavix for 1 year until otherwise specified Addtl Swatch Paster Provider Instructions: May wash wrist area, do not soak for 5 days Pending Studies at Discharge: No Stand-Alone Forms: Call Back Authorization, [facility], Smoking Cessation Medications and DC Order Prescriptions: New atorvastatin 40 mg Tablet 40 mg PO QAM 30 Days Qty: 30 RF: 0 clopidogrel 75 mg Tablet 75 mg PO QAM 30 Days Qty: 30 RF: 0 aspirin [Ecotrin Low Strength] 81 mg Tablet,Delayed Release (Dr/Ec) 81 mg PO QAM 30 Days Qty: 30 RF: 0 lisinopril 2.5 mg Tablet 2.5 mg PO QAM 30 Days Qty: 30 RF: 0 No Action No Known Home Medications RF: 0 Discharge Orders: Discharge Order (Routine); Ordered 10/29/19 Ordered By: Feroz Perez Admission Data Admit Date/Time: 10/27/19 06:18 Attending Provider: Feroz Perez Admit Provider: Reji Christianson Primary Care Provider: Harshad Bach Other Providers: Jesus Nichols ; Hawk Lucia ; Reji Christianson Other Interventions: Discharge Summary Assessment (RN) Last Done: 10/29/19 12:45 DC Date/Time DO NOT enter until pt leaves facility: 10/29/19 13:46
== END 2019-10-29 13:46 | disposition home or self-care (01) | DRG 247 ==
LOC: ED 04:29 → 2E 06:18 → SUATTDRO 06:18 → 2E 06:46
DX: Z91.19 Patient's noncompliance with other medical treatment and regimen; I25.10 Atherosclerotic heart disease of native coronary artery without angina pectoris; S65 Injury of blood vessels at wrist and hand level; Z82.49 Family history of ischemic heart disease and other diseases of the circulatory system; T82.528A Displacement of other cardiac and vascular devices and implants, initial encounter; Z23 Encounter for immunization; Y71.2 Prosthetic and other implants, materials and accessory cardiovascular devices associated with adverse incidents; I10 Essential (primary) hypertension; I47.2 Ventricular tachycardia; E78.5 Hyperlipidemia, unspecified; Z86.73 Personal history of transient ischemic attack (TIA), and cerebral infarction without residual deficits; Y92.238 Other place in hospital as the place of occurrence of the external cause; I21.4 Non-ST elevation (NSTEMI) myocardial infarction; E11.9 Type 2 diabetes mellitus without complications; Y84.0 Cardiac catheterization as the cause of abnormal reaction of the patient, or of later complication, without mention of misadventure at the time of the procedure; R00.1 Bradycardia, unspecified